=== PATIENT | male | born 1955 | race Caucasian/White ===

== ENCOUNTER 2018-01-17 12:46 | Observation (INO) ==
[2018-01-17] MEDS ORDERED: Tetanus/Diphtheria Toxoid Adult Vaccine Inj 0.5 ML Vial IM ONE (13:09)
[2018-01-17] MEDS ORDERED: ceFAZolin 2 GM Premix Inj 2 GM/50 ML PIGGYBACK IV.SIG ONE (13:09)
--- NOTE | 2018-01-17 13:44 | XR ---
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 CLINICAL DATA: This is the patient's initial encounter. Patient reports that signs and symptoms have been present for 1 day and indicates a pain score of 10/10. MEDICAL/SURGICAL HISTORY: None. None. COMPARISON: No prior exams available for comparison. FINDINGS: Views of the right ankle are obtained. Extensive soft tissue injury in the region of the Achilles ten don. 2 ossified densities the largest measuring 19 mm may be related to calcaneal bone fragments. Ank le mortise is intact CONCLUSION: 1. Extensive soft tissue injury to the posterior ankle/[place] tendon. 2. Ossified density measuring 19 mm may be related to bony fragment from the adjacent calcaneus. Electronically signed by: Casper Rasmussen MD 01/17/2018 1:43 PM EDT
[2018-01-17] MEDS ORDERED: Morphine Inj 4 MG/ML Vial IV.PUSH PRN (14:06)
--- NOTE | 2018-01-17 14:18 | P.HPIM ---
History of Present Illness Primary Care Physician: No Primary Care Physician Chief Complaint: left ankle injury History of Present Illness: patient is a 62 y/o male with no significant past medical history who presented to ER with left ankle injury. he says that this morning while he was working on the lawn the tip of the mower hit his left ankle. he denies any other injuries. the pain was mild at the time of my evaluation and otherwise he denies any other complaints. Review of Systems All other systems reviewed negative except as stated in HPI PMFSH - History History Provided By: Patient - Medical History Medical History: Medical History (Last Reviewed 01/17/18 @ 14:10 by Gary Ratliff MD) Patient denies medical problems - Surgical History Surgical History: Surgical History (Last Reviewed 01/17/18 @ 14:10 by Gary Ratliff MD) No history of previous surgery - Family History Family History: Family History (Last Updated 01/17/18 @ 14:10 by Gary Ratliff MD) Other No pertinent family history - Tobacco History Second Hand Smoke Exposure: No Smoking Status: Never smoker - Alcohol History How Often Do You Have a Drink Containing Alcohol: 2 to 3 times a week - Immunization History Tetanus Immunization: >5 Years Medications and Allergies Active Medications: Active Medications Sodium Chloride (Ns Inj) 1,000 mls @ 100 mls/hr IV.CONT .Q10H ROBERT Cefazolin Sodium 1,000 mg/ (Sodium Chloride) 100 mls @ 200 mls/hr IV.SIG Q8H ROBERT Morphine Sulfate (Morphine Inj) 2 mg IV.PUSH Q4H PRN PRN Reason: pain Ondansetron HCl (Zofran Inj) 4 mg IV.PUSH Q8H PRN PRN Reason: nausea Allergies Allergy/AdvReac Type Severity Reaction Status Date / Time No Known Allergies Allergy Verified 01/17/18 13:13 Home Medications Medication Instructions Recorded Confirmed Type No Known Home Medications 01/17/18 01/17/18 History Exam Vital signs: Vital Signs 01/17/18 13:07 Temperature 98.2 F Pulse Rate 58 L Respiratory Rate 16 Blood Pressure 133/79 Pulse Oximetry 100 Intake & Output 01/16/18 01/17/18 01/17/18 18:59 06:59 18:59 Intake Total 50 / 50 Balance 50 / 50 Weight 85.275 kg Intake: IV 50 / 50 Ancef 2 GM Premix Inj 2 gm In 50 / 50 50 ml @ 100 mls/hr IV.SIG ONCE ONE Rx#:[id number] - Constitutional no acute distress - Routine HEENT Exam Head: Present: atraumatic - Routine Neck Exam Present: supple - Routine Respiratory Exam Present: CTA bilaterally - Routine Cardiovascular Exam Present: RRR - Routine Abdominal Exam Present: soft - Routine Extremities Exam Comments: no pedal edema- left ankle covered with clean dressing. - Routine Neurological Exam Present: alert, oriented X3 Results - Imaging Impressions Ankle X-Ray 01/17/18 13:09 CONCLUSION: 1. Extensive soft tissue injury to the posterior ankle/[place] tendon. 2. Ossified density measuring 19 mm may be related to bony fragment from the adjacent calcaneus. Caprini VTE Risk Assessment Caprini VTE Risk Assessment: No/Low Risk (score <= 1) Caprini Risk Assessment Model: Point Value = 1 Point Value = 2 Point Value = 3 Point Value = 5 Age 41-60 Minor surgery BMI > 25 kg/m2 Swollen legs Varicose veins or History of unexplained or recurrent spontaneous Oral contraceptives or hormone replacement Sepsis (< 1 month) Serious lung disease, including pneumonia (< 1 month) Abnormal pulmonary function Acute myocardial infarction Congestive heart failure (< 1 month) History of inflammatory bowel disease Medical patient at bed rest Age 61-74 Arthroscopic surgery Major open surgery (> 45 min) Laparoscopic surgery (> 45 min) Malignancy Confined to bed (> 72 hours) Immobilizing plaster cast Central venous access Age >= 75 History of VTE Family history of VTE Factor V Leiden Prothrombin [id number] Lupus anticoagulant Anticardiolipin antibodies Elevated serum homocysteine Heparin-induced thrombocytopenia Other congenital or acquired thrombophilia Stroke (< 1 month) Elective arthroplasty Hip, pelvis, or leg fracture Acute spinal cord injury (< 1 month) Prophylaxis Regimen: Total Risk Factor Score Risk Level Prophylaxis Regimen 0-1 Low Early ambulation 2 Moderate Order ONE of the following: *Sequential Compression Device (SCD) *Heparin 5000 units SQ BID 3-4 Higher Order ONE of the following medications: *Heparin 5000 units SQ TID *Enoxaparin/Lovenox 40 mg SQ daily (WT < 150 kg, CrCl > 30 mL/min) *Enoxaparin/Lovenox 30 mg SQ daily (WT < 150 kg, CrCl > 10-29 mL/min) *Enoxaparin/Lovenox 30 mg SQ BID (WT < 150 kg, CrCl > 30 mL/min) AND/OR *Sequential Compression Device (SCD) 5 or more Highest Order ONE of the following medications: *Heparin 5000 units SQ TID (Preferred with Epidurals) *Enoxaparin/Lovenox 40 mg SQ daily (WT < 150 kg, CrCl > 30 mL/min) *Enoxaparin/Lovenox 30 mg SQ daily (WT < 150 kg, CrCl > 10-29 mL/min) *Enoxaparin/Lovenox 30 mg SQ BID (WT < 150 kg, CrCl > 30 mL/min) AND *Sequential Compression Device (SCD) Assessment and Plan - Plan A/P - left ankle injury XR of the left ankle with extensive soft tissue injury to the posterior ankle /Jaime tendon and ossified density measuring 19 mm may be related to bony fragment from the adjacent calcaneus. keep NPO- consult Podiatry- MRI of the left ankle pending. received Tetanus vaccination in ER- will continue with IV antibiotic for now- pending podiatry evaluation. Discussed Condition With: ER physician and the patient. Discharge Planning: pending podiatry evaluation.
--- NOTE | 2018-01-17 14:28 | ED ---
HPI General Chief Complaint: Extremity Injury, Lower Stated Complaint: left ankle injury Time Seen by Provider: 01/17/18 13:08 Source: patient Mode of arrival: ambulatory Limitations: no limitations History of Present Illness HPI Narrative: Patient is 82 years old and arrives to the left heel injury. He reports a tractor lawnmower blade struck the left ankle about an hour prior to ER arrival. Bleeding resolved with application of a dresser. He reports flexion at the ankle is painful and he feels as though something might snap if he presses too hard. No other injury reported. Patient does not recall last tetanus. Type of Injury: Reports laceration Place: Reports home Severity: severe Relieving factors: immobilization Exacerbating factors: movement Related Data Home Medications Medication Instructions Recorded Confirmed No Known Home Medications 01/17/18 01/17/18 Allergies Allergy/AdvReac Type Severity Reaction Status Date / Time No Known Allergies Allergy Verified 01/17/18 13:13 Review of Systems ROS: all other systems reviewed are negative [facility] Family History Family History Other No pertinent family history Social History Social History Second Hand Smoke Exposure: No Smoking Status: Never smoker How Often Do You Have a Drink Containing Alcohol: 2 to 3 times a week Immunization History Tetanus Immunization: >5 Years Exam Narrative Exam Narrative: GENERAL: She is a 2-year-old male well-nourished well-developed moderate distress SKIN: Focused skin assessment warm/dry. HEAD: Atraumatic. Normocephalic. EYES: Pupils equal and round. No scleral icterus. No injection or drainage. ENT: No nasal bleeding or discharge. Mucous membranes pink and moist. NECK: Trachea midline. No JVD. CARDIOVASCULAR: Regular rate and rhythm. No murmur appreciated. RESPIRATORY: No accessory muscle use. Clear to auscultation. Breath sounds equal bilaterally. GASTROINTESTINAL: Abdomen soft, non-tender, nondistended. Hepatic and splenic margins not palpable. MUSCULOSKELETAL: Left ankle shows a large avulsion laceration just above the calcaneus with some visualization of the calcaneus with what appears to be a severance of the Achilles tendon. There is some preserved flexion extension of the left ankle however it is limited by pain. 2+ dorsalis pedis and posterior tibialis noted. NEUROLOGICAL: Awake and alert. No obvious cranial nerve deficits. Motor grossly within normal limits. Normal speech. PSYCHIATRIC: Appropriate mood and affect; insight and judgment normal. Course Initial Documented Vital Signs Temperature 98.2 F 01/17/18 13:07 Pulse Rate 58 L 01/17/18 13:07 Respiratory Rate 16 01/17/18 13:07 Blood Pressure 133/79 01/17/18 13:07 Pulse Oximetry 100 01/17/18 13:07 Last Documented Vital Signs Temperature 98.2 F 01/17/18 13:07 Pulse Rate 58 L 01/17/18 13:07 Respiratory Rate 16 01/17/18 13:07 Blood Pressure 133/79 01/17/18 13:07 Pulse Oximetry 100 01/17/18 13:07 Critical Care Time Critical Care Time: Yes Total Critical Care Time: 30 Attestation: Aggregate critical care time was 30 minutes. Time to perform other separately billable procedures was not included in the critical care time. My time did not include minutes spent treating any other patients simultaneously or on activities that did not directly contribute to the patient's treatment. The services I provided to this patient were to treat and/or prevent clinically significant deterioration that could result in: tendon injury, permanent disability I provided critical care services requiring my management, as noted below: Chart data review, documentation time, medication orders and management, vital sign assessments/reviewing monitor data, ordering and reviewing lab tests, ordering and interpreting/reviewing x-rays and diagnostic studies, care of the patient and discussion of the patient with the admitting physicians. Medical Decision Making MDM Narrative Medical decision making narrative: Achilles tendon rupture is of concern. Wound irrigated and dressed with wet-to-dry sterile dressings with iodine. Wound wrapped. Discussed with Dr. Stockton for podiatry. MR studies ordered at her request. Discussed with Dr. beata duran for hospitalist service. Medical Screen Exam Complete: Yes Emergency Medical Condition: Yes Differential Diagnosis Differential Diagnosis: Achilles tendon lack, fracture, dislocation, open fracture Imaging Data Attestation: I personally reviewed and interpreted this imaging study as follows : Radiologist's impression: Ankle X-Ray 01/17/18 13:09 CONCLUSION: 1. Extensive soft tissue injury to the posterior ankle/Jaime tendon. 2. Ossified density measuring 19 mm may be related to bony fragment from the adjacent calcaneus. Discharge Plan Discharge Disposition Patient Disposition: 30 Still Patient Physicians Team ED Provider: Moises Jules Primary Care Provider: Primary Care Physici,No Other Providers: Maggie Stockton Rxs /Orders / Referrals /Forms Prescriptions: No Action No Known Home Medications RF: 0 Discharge Instructions Patient Printed Instructions: Incision and Drainage (DC) Status ED Status: With Doctor
[2018-01-17 15:38] LABS: Baso # (Auto) 0.1 th/mm3 (0.0-0.2); Baso % (Auto) 0.5 % (0.0-2.0); Eos # (Auto) 0.1 th/mm3 (0.0-0.4); Eos % (Auto) 1.4 % (0.0-4.0); Hematocrit 46.7 % (39.0-51.0); Hemoglobin 15.9 gm/dL (13.0-17.0); Lymph % (Auto) 9.2 % (9.0-44.0); Mean Corpuscular HGB Conc 34.2 % (32.0-36.0); Mean Corpuscular Hemoglobin 33.1 pg (27.0-34.0); Mean Platelet Volume 8.6 fL (7.0-11.0); Mono # (Auto) 0.5 th/mm3 (0.0-0.9); Mono % (Auto) 5.2 % (0.0-8.0); Neut # (Auto) 8.8 th/mm3 (1.8-7.7); Neut % (Auto) 83.7 % (16.0-70.0); Platelet Count 222 th/mm3 (150-450); Red Blood Count 4.81 mil/mm3 (4.50-5.90); Red Cell Distribution Width 13.8 % (11.6-17.2); White Blood Count 10.5 th/mm3 (4.0-11.0)
--- NOTE | 2018-01-17 15:53 | MR ---
EXAM DATE: 01/17/2018 2:52 PM EDT AGE/SEX: 62 years / Male INDICATIONS: . Ran posterior left foot over with a lawnmower blade. CLINICAL DATA: This is the patient's initial encounter. Patient reports that signs and symptoms have been present for 1 day and indicates a pain score of 6/10. MEDICAL/SURGICAL HISTORY: None. None. COMPARISON: [facility], ANKLE COMPLETE LEFT MIN 3V, 01/17/2018. . TECHNIQUE: Multiplanar, multisequence MRI examination was performed without contrast. FINDINGS: Bones: There is a large bony fragment measuring 1.9 cm on the plain film that is superiorly migrated from the top the calcaneus by at least 1.8 cm. There is a large defect of the Achilles tendon commissioning specialist ior to the bone fragment of at least 3.4 cm. There are some bony edema along the remaining edge of th e calcaneus. On the axial images the bone fragment appears to primarily involve the lateral attachmen t of the Achilles. Small plantar spur Joint Spaces: No joint effusion or loose bodies are seen. The articular cartilage is intact. Tendons: The posteromedial tendons (tibialis posterior, flexor digitorum and flexor hallucis longus) are intact. The peroneal tendons are intact. The anterior tendons (tibialis anterior, extensor jeromy lucis longus and extensor digitorum) are intact. The Ligaments: The lateral and medial ligament complexes are intact. Other: The plantar aponeurosis is grossly unremarkable. The structures in the tarsal tunnel are int act. Soft Tissues: Obvious soft tissue defect above the calcaneus CONCLUSION: 1. There has been a fracture at the top the calcaneus and retraction of the Achilles tendon approxim ately 3.4 cm. Bone fragment with the Achilles is better seen on the plain film. The bone fragment mor e involves lateral insertion of the Achilles. Electronically signed by: Russel Mcwilliams MD 01/17/2018 3:52 PM EDT
[2018-01-17 15:55] LABS: Calcium 8.9 mg/dL (8.5-10.1); Carbon Dioxide 28.1 meq/L (21.0-32.0); Potassium 4.4 meq/L (3.5-5.1)
[2018-01-17] MEDS: Sod Chloride 0.9% Inj 1,000 ML IV.CONT SCH ×2 (16:11→20:42)
--- NOTE | 2018-01-17 17:43 | MB ---
cc: Maggie Stockton DPM DATE: 01/17/2018 CHIEF COMPLAINT: Left leg laceration. HISTORY OF PRESENT ILLNESS: Mr. Durán is a 62-year-old male patient who states that at 10:30 this morning, he was working on the lawn and somehow managed to lacerate the posterior aspect of his ankle with a lawnmower blade. He states he was not mowing the lawn at the time of the injury, but the blade is used and was dirty. The patient states that he is having some discomfort, but the pain is tolerable. PAST MEDICAL HISTORY: The patient denies. PAST SURGICAL HISTORY: The patient denies. FAMILY HISTORY: Noncontributory. SOCIAL HISTORY: The patient denies any tobacco abuse. Drinks alcohol socially. Lives at home with family. VITAL SIGNS: Temperature is 97.7, pulse is 60, respiratory rate 18, blood pressure 120/71, O2 is 98% on room air. LABORATORY DATA: White count is 10.5, hemoglobin 15.9, hematocrit 46.7, platelets 222,000. Sodium 144, potassium 4.4, chloride 107, carbon dioxide 28.1, BUN 16, creatinine 1.31, glucose 92. DIAGNOSTIC DATA: Ankle x-ray shows a 1.9 cm bone piece which appears to be fragmented off of the posterior aspect of the calcaneus, and extensive soft tissue damage to the posterior aspect of the Achilles tendon. MRI shows the Achilles tendon is lacerated and retracted approximately 3.4 cm with a small portion of the posterior lateral calcaneus attached. There are no large foreign body fragments. PHYSICAL EXAMINATION: The patient physical exam was slightly limited due to a fresh and bulky dressing. He does have palpable pulses though and capillary refill time is less than 3 seconds. He is able to move the digits slightly. Gross sensation is intact. No visible edema. ASSESSMENT AND PLAN: 1. Left ankle calcaneal fracture and Achilles laceration. Plan for surgical washout and debridement with possible closure this evening as soon as the operating room has availability. - N.p.o. The patient states he has not eaten since around 9 a.m. this morning. - The patient will be nonweightbearing postoperatively. - The patient will likely need a second surgery in 48-72 hours to reapproximate the Achilles tendon. ELLA Shaikh/tova , 05:13 PM , 05:22 PM MARIZOL
[2018-01-17] MEDS ORDERED: Phenylephrine/NS 1000 MCG/10ML Syringe IV.PUSH ONE (18:01)
[2018-01-17] MEDS ORDERED: Lidocaine PF 1% Inj 5 ML Syringe OTHER ONE (18:01)
[2018-01-17] MEDS ORDERED: Sugammadex Inj 200 MG/2 ML Vial IV.PUSH ONE (18:22)
[2018-01-17] MEDS ORDERED: fentaNYL Citrate Inj 100 MCG/2 ML Ampul ONE ×2 (19:01→19:02)
--- NOTE | 2018-01-17 20:53 | MP ---
cc: Maggie Stockton DPM DATE OF OPERATION: 01/17/2018 SURGEON: Maggie Stockton MD ELECTRICIAN RESEARCH: first devika Mancini. PREOPERATIVE DIAGNOSES: 1. Left open calcaneal fracture. 2. Left Achilles tendon tear. 3. Left complex laceration. POSTOPERATIVE DIAGNOSES: 1. Left open calcaneal fracture. 2. Left Achilles tendon tear. 3. Left complex laceration. PROCEDURE PERFORMED: 1. Left open calcaneal bone debridement. 2. Left leg wound debridement/incision and drainage. 3. Closure of complicated wound. 4. Wound VAC application. PATHOLOGY SENT: A fragment of calcaneal bone. MATERIALS USED: Include absorbable beads infused with vancomycin, 3-0 Prolene, and a KCI wound VAC. INJECTABLES: None. COMPLICATIONS: None. ESTIMATED BLOOD LOSS: 20 mL. INDICATIONS: Mr. Durán is a 62-year-old male patient who sustained an injury to the left posterior ankle on a farm equipment. Around 10:30 this morning, he sustained a laceration of the Achilles tendon as well as an open fracture of the calcaneus and a complex wound. The decision was made to do a two-part procedure with the first part being a cleansing and reapproximating the skin and tendon and the second part being a permanent repair of the tendon. The consent was explained in detail and signed. The patient had all questions answered and all concerns addressed. DESCRIPTION OF PROCEDURE: Under mild sedation, the patient was brought to the operating room, placed on the operating table in the prone position following intubation. The foot was then scrubbed, prepped, and draped in the usual aseptic manner. Further examination of the leg showed a large semicircular laceration to the posterior aspect of the heel with an exposed portion of the fractured calcaneus and the open Achilles tendon. There was some debris of note in the wound. A 3 liters of sterile saline was used to irrigate the wound and cleaned it of any foreign bodies. The proximal fragment of the calcaneal bone was sharply debrided from the Achilles tendon and sent to pathology for further evaluation and measured just under 2 cm. The Achilles tendon appeared to be fully intact other than the area from which it had been severed. The skin had been severely retracted and rotated, but after some debridement and freeing it from the Achilles tendon, it was able to be derotated and flapped distally in order to reapproximate it. Approximately 75% of the laceration was able to be very well approximated. The other 25% was loosely reapproximated, but cannot be fully closed. Prior to the 25% reapproximation, the absorbable antibiotic beads were placed into the wound site. No tourniquet was used. All skin flaps appear well perfused and viable at this time. Adaptic was placed over the suture sites. VAC tape was placed on the healthy skin and a wound VAC was placed at 100 mmHg over the incision site. He was then placed in a posterior splint in a plantarflexed position. The patient tolerated the procedure and the anesthesia well. He will recover in the PACU for a period of time before being discharged back to his room with written and oral postoperative instructions. ELLA Shaikh/sv , 07:31 PM , 07:39 PM
[2018-01-18] MEDS: Gentamicin/NS 80 mg Premix 100 ML IV.SIG SCH ×3 (02:19→17:42)
[2018-01-18] MEDS: Sod Chloride 0.9% Inj 1,000 ML IV.CONT SCH ×5 (02:27→20:47)
--- NOTE | 2018-01-18 09:05 | P.PN ---
Subjective Interval history: This is a pleasant 62 y/o Male who came to ER with left Ankle injury denies any other injuries. covered with antibiotics, Tetanus vaccine, with diagnosis of left open calcaneal fracture, left Achilles tendon tear, left complex laceration, status post Left open calcaneal bone debridement, Left leg wound debridement/incision and drainage, Closure of complicated wound, Wound VAC application, a fragment of calcaneal bone for pathology sent, Seen today by Doctor Elle Palafox recommended for OR tomorrow for Achilles tendon rupture repair, he understands he will need to be nonweightbearing for a period of 8-12 weeks. Physical Exam Vital signs: Vital Signs 01/17/18 13:07 01/17/18 15:50 01/17/18 19:30 Temperature 98.2 F 97.7 F 97.6 F Pulse Rate 58 L 60 96 H Respiratory Rate 16 18 14 Blood Pressure 133/79 120/71 142/73 H Pulse Oximetry 100 98 96 01/17/18 19:45 01/17/18 20:00 01/17/18 20:15 Temperature 97.7 F Pulse Rate 78 79 67 Respiratory Rate 14 18 16 Blood Pressure 128/72 127/68 124/74 Pulse Oximetry 99 97 97 01/17/18 20:30 01/17/18 20:45 01/17/18 21:00 Temperature 97.7 F Pulse Rate 82 79 80 Respiratory Rate 20 20 16 Blood Pressure 135/77 128/72 116/76 Pulse Oximetry 95 99 99 01/18/18 00:00 01/18/18 07:51 Temperature 98.0 F 98.4 F Pulse Rate 75 78 Respiratory Rate 18 16 Blood Pressure 101/55 L 104/55 L Pulse Oximetry 94 L 94 L Intake & Output 01/17/18 01/18/18 01/18/18 18:59 06:59 18:59 Intake Total 50 / 50 3100 / 3100 100 / 100 Output Total 40 / 40 Balance 50 / 50 3060 / 3060 100 / 100 Weight 85.275 kg 82.1 kg Intake: IV 50 / 50 2000 / 2000 100 / 100 NS Inj 1,000 ML @ 100 mls/hr IV 1800 / 1800 .CONT .Q10H ROBERT Rx#:[id number] Gentamicin/NS 80 mg Premix 100 100 / 100 ML @ 200 mls/hr IV.SIG Q8H ROBERT Rx#:[id number] Ancef 2 GM Premix Inj 2 gm In 50 / 50 50 ml @ 100 mls/hr IV.SIG ONCE ONE Rx#:[id number] Ancef Inj 1,000 MG In NS Inj 100 / 100 100 / 100 100 ML @ 200 mls/hr IV.SIG Q8H [facility] Rx#:[id number] Anesthesia Amount 1100 / 1100 Output: Urine 0 / 0 Estimated Blood Loss 40 / 40 Other: Mode Setting Right Ankle Continuous Weight On Admission 83.915 kg Narrative: GENERAL: This is a well-nourished, well-developed patient, in no apparent distress. CARDIOVASCULAR: Regular rate and rhythm without murmurs, gallops, or rubs. RESPIRATORY: Clear to auscultation. Breath sounds equal bilaterally. No wheezes , rales, or rhonchi. GASTROINTESTINAL: Abdomen soft, non-tender, nondistended. Normal active bowel sounds MUSCULOSKELETAL: left leg dressed. vacuum in place. NEURO: Alert & Oriented x4 to person, place, time, situation. Moves all ext x4 Results - Labs CBC & Chem 7: 01/17/18 13:45 01/17/18 13:45 Laboratory Results - last 24 hr 01/17/18 01/17/18 13:45 13:45 WBC 10.5 RBC 4.81 Hgb 15.9 Hct 46.7 MCV 97.0 MCH 33.1 MCHC 34.2 RDW 13.8 Plt Count 222 MPV 8.6 Neut % (Auto) 83.7 H Lymph % (Auto) 9.2 Coffey % (Auto) 5.2 Eos % (Auto) 1.4 Baso % (Auto) 0.5 Neut # (Auto) 8.8 H Lymph # (Auto) 1.0 Coffey # (Auto) 0.5 Eos # (Auto) 0.1 Baso # (Auto) 0.1 WBC Differential . Differential Comment Auto diff final Sodium 144 Potassium 4.4 Chloride 107 Carbon Dioxide 28.1 Anion Gap 9 BUN 16 Creatinine 1.31 H Estimated GFR 55 L Random Glucose 92 Calcium 8.9 - Imaging Impressions Ankle X-Ray 01/17/18 13:09 CONCLUSION: 1. Extensive soft tissue injury to the posterior ankle/Jaime tendon. 2. Ossified density measuring 19 mm may be related to bony fragment from the adjacent calcaneus. Ankle MRI 01/17/18 13:32 CONCLUSION: 1. There has been a fracture at the top the calcaneus and retraction of the Achilles tendon approximately 3.4 cm. Bone fragment with the Achilles is better seen on the plain film. The bone fragment more involves lateral insertion of the Achilles. - Procedures DATE OF OPERATION: 01/17/2018 SURGEON: Maggie Stockton MD SUPERINTENDENT SANITATION: first devika Mancini. PREOPERATIVE DIAGNOSES: 1. Left open calcaneal fracture. 2. Left Achilles tendon tear. 3. Left complex laceration. POSTOPERATIVE DIAGNOSES: 1. Left open calcaneal fracture. 2. Left Achilles tendon tear. 3. Left complex laceration. PROCEDURE PERFORMED: 1. Left open calcaneal bone debridement. 2. Left leg wound debridement/incision and drainage. 3. Closure of complicated wound. 4. Wound VAC application. PATHOLOGY SENT: A fragment of calcaneal bone. Assessment and Plan - Plan - left ankle injury/left open calcaneal fracture, left Achilles tendon tear, left complex laceration, status post Left open calcaneal bone debridement, Left leg wound debridement/incision and drainage, Closure of complicated wound, Wound VAC application, a fragment of calcaneal bone for pathology sent, Seen today by Doctor Elle Palafox recommended for OR tomorrow for Achilles tendon rupture repair , he understands he will need to be nonweightbearing for a period of 8-12 weeks. DVT prophylaxis as per Podiatry specialist. Code Status: Full code. Discussed Condition With: patient and nurse. Discharge Planning: Once cleared by Podiatry specialist.
[2018-01-18] MEDS: Acetaminophen 325 MG Tablet PO PRN ×3 (10:17→20:51)
--- NOTE | 2018-01-18 17:21 | P.PNPOD ---
Subjective Interval history: Patient seen bedside resting comfortably. Wound VAC functioning AT 125 mm per mercury. Physical Exam Vital signs: Vital Signs 01/17/18 19:30 01/17/18 19:45 01/17/18 20:00 Temperature 97.6 F 97.7 F Pulse Rate 96 H 78 79 Respiratory Rate 14 14 18 Blood Pressure 142/73 H 128/72 127/68 Pulse Oximetry 96 99 97 01/17/18 20:15 01/17/18 20:30 01/17/18 20:45 Temperature Pulse Rate 67 82 79 Respiratory Rate 16 20 20 Blood Pressure 124/74 135/77 128/72 Pulse Oximetry 97 95 99 01/17/18 21:00 01/18/18 00:00 01/18/18 07:51 Temperature 97.7 F 98.0 F 98.4 F Pulse Rate 80 75 78 Respiratory Rate 16 18 16 Blood Pressure 116/76 101/55 L 104/55 L Pulse Oximetry 99 94 L 94 L 01/18/18 11:59 01/18/18 16:00 Temperature 98.4 F 98.2 F Pulse Rate 68 81 Respiratory Rate 16 16 Blood Pressure 111/55 L 129/60 Pulse Oximetry 95 96 Intake & Output 01/17/18 01/18/18 01/18/18 18:59 06:59 18:59 Intake Total 50 / 50 3100 / 3100 1153 / 1153 Output Total 40 / 40 Balance 50 / 50 3060 / 3060 1153 / 1153 Weight 85.275 kg 82.1 kg Intake: IV 50 / 50 2000 / 2000 1153 / 1153 NS Inj 1,000 ML @ 100 mls/hr IV 1800 / 1800 853 / 853 .CONT .Q10H [facility] Rx#:[id number] Gentamicin/NS 80 mg Premix 100 100 / 100 100 / 100 ML @ 200 mls/hr IV.SIG Q8H [facility] Rx#:[id number] Ancef 2 GM Premix Inj 2 gm In 50 / 50 50 ml @ 100 mls/hr IV.SIG ONCE ONE Rx#:[id number] Ancef Inj 1,000 MG In NS Inj 100 / 100 200 / 200 100 ML @ 200 mls/hr IV.SIG Q8H [facility] Rx#:[id number] Anesthesia Amount 1100 / 1100 Output: Urine 0 / 0 Estimated Blood Loss 40 / 40 Other: Mode Setting Right Ankle Continuous Weight On Admission 83.915 kg Narrative: Wound VAC functioning at 125 mm per mercury. Capillary refill time intact to digits x5 left foot. Active passive dorsiflexion digits x5 left lower extremity. Medications and Allergies Active Medications: Active Medications Acetaminophen (Tylenol) 650 mg PO Q4H PRN PRN Reason: fever, pain 1-5 Last Admin: 01/18/18 16:29 Dose: 650 mg Sodium Chloride (Ns Inj) 1,000 mls @ 100 mls/hr IV.CONT .Q10H [facility] Last Admin: 01/18/18 16:31 Dose: 100 mls/hr Cefazolin Sodium 1,000 mg/ (Sodium Chloride) 100 mls @ 200 mls/hr IV.SIG Q8H [facility] Last Infusion: 01/18/18 13:09 Dose: Infused Gentamicin Sulfate/Sodium Chloride (Gentamicin/Ns 80 Mg Premix) 100 mls @ 200 mls/hr IV.SIG Q8H [facility] Last Infusion: 01/18/18 10:15 Dose: Infused Miscellaneous Information ([facility] [place] [facility] [place] 1 each OTHER UNSCH PRN PRN Reason: SEE LABEL COMMENTS Stop: 01/18/18 22:45 Morphine Sulfate (Morphine Inj) 2 mg IV.PUSH Q4H PRN PRN Reason: PAIN 6-10;IF UNABLE TO TAKE PO Ondansetron HCl (Zofran Inj) 4 mg IV.PUSH Q8H PRN PRN Reason: nausea Allergies Allergy/AdvReac Type Severity Reaction Status Date / Time No Known Allergies Allergy Verified 01/17/18 13:13 Home Medications Medication Instructions Recorded Confirmed Type No Known Home Medications 01/17/18 01/17/18 History Results - Labs CBC & Chem 7: 01/17/18 13:45 01/17/18 13:45 - Procedures DATE OF OPERATION: 01/17/2018 SURGEON: Maggie Stockton MD PHARMACY INTAKE TECHNICIAN: first devika Mancini. PREOPERATIVE DIAGNOSES: 1. Left open calcaneal fracture. 2. Left Achilles tendon tear. 3. Left complex laceration. POSTOPERATIVE DIAGNOSES: 1. Left open calcaneal fracture. 2. Left Achilles tendon tear. 3. Left complex laceration. PROCEDURE PERFORMED: 1. Left open calcaneal bone debridement. 2. Left leg wound debridement/incision and drainage. 3. Closure of complicated wound. 4. Wound VAC application. PATHOLOGY SENT: A fragment of calcaneal bone. Assessment and Plan - Plan 62-year-old male with Achilles tendon rupture and laceration, day 2 status post debridement irrigation with antibiotic bead placement and wound VAC placement To the OR tomorrow for Achilles tendon rupture repair Please obtain consent N.p.o. after midnight with clear liquids okay until 7 AM, discussed with nurse Patient understands all risks benefits alternatives and complications associated with procedure, he understands he will need to be nonweightbearing for a period of 8-12 weeks
[2018-01-18] MEDS ORDERED: Chlorhexidine Gluconate 2% 1 Pack (2 Cloths) TOPICAL ONE (22:08)
[2018-01-18] MEDS ORDERED: Metoprolol Tartrate 25 MG Tablet PO ONE (22:08)
[2018-01-18] MEDS ORDERED: Sodium Chlor 0.9% Inj 500 ML IV.SIG SCH (23:00)
[2018-01-19] MEDS: Gentamicin/NS 80 mg Premix 100 ML IV.SIG SCH ×3 (01:33→18:16)
[2018-01-19] MEDS: Sod Chloride 0.9% Inj 1,000 ML IV.CONT SCH ×3 (02:43→21:54)
[2018-01-19] MEDS: Acetaminophen 325 MG Tablet PO PRN ×3 (04:13→21:51)
[2018-01-19 07:13] LABS: Carbon Dioxide 25.2 meq/L (21.0-32.0); Potassium 3.9 meq/L (3.5-5.1)
--- NOTE | 2018-01-19 11:55 | P.PN ---
Subjective Interval history: This is a pleasant 62 y/o Male who came to ER with left Ankle injury denies any other injuries. covered with antibiotics, Tetanus vaccine, with diagnosis of left open calcaneal fracture, left Achilles tendon tear, left complex laceration, status post Left open calcaneal bone debridement, Left leg wound debridement/incision and drainage, Closure of complicated wound, Wound VAC application, a fragment of calcaneal bone for pathology sent, Seen today by Doctor Elle Palafox recommended for OR tomorrow for Achilles tendon rupture repair, he understands he will need to be nonweightbearing for a period of 8-12 weeks. 01/19: Seen in his bedroom, resting in bed awaiting for Surgery later today at 3 PM by Doctor Javy, no nausea, vomit or diarrhea, patient is NPO for surgery. Physical Exam Vital signs: Vital Signs 01/18/18 11:59 01/18/18 16:00 01/18/18 20:00 Temperature 98.4 F 98.2 F 98.2 F Pulse Rate 68 81 73 Respiratory Rate 16 16 17 Blood Pressure 111/55 L 129/60 109/62 Pulse Oximetry 95 96 96 01/19/18 00:00 01/19/18 08:00 Temperature 99.1 F 98.5 F Pulse Rate 70 60 Respiratory Rate 17 17 Blood Pressure 132/65 123/68 Pulse Oximetry 96 94 L Intake & Output 01/18/18 01/19/18 01/19/18 18:59 06:59 18:59 Intake Total 4253 / 4253 1420 / 1420 Output Total 900 / 900 Balance 3353 / 3353 1420 / 1420 Weight 82.1 kg Intake: IV 1253 / 1253 1300 / 1300 NS Inj 1,000 ML @ 100 mls/hr IV 853 / 853 1000 / 1000 .CONT .Q10H [facility] Rx#:[id number] Gentamicin/NS 80 mg Premix 100 200 / 200 100 / 100 ML @ 200 mls/hr IV.SIG Q8H [facility] Rx#:[id number] Ancef Inj 1,000 MG In NS Inj 200 / 200 200 / 200 100 ML @ 200 mls/hr IV.SIG Q8H [facility] Rx#:[id number] Oral 3000 / 3000 120 / 120 Output: Urine 900 / 900 Other: Post Void Residual 700 Mode Setting Left Ankle Continuous Right Ankle Continuous Date of Last Bowel Movement 01/16/18 # Bowel Movements 0 Narrative: GENERAL: This is a well-nourished, well-developed patient, in no apparent distress. CARDIOVASCULAR: Regular rate and rhythm without murmurs, gallops, or rubs. RESPIRATORY: Clear to auscultation. Breath sounds equal bilaterally. No wheezes , rales, or rhonchi. GASTROINTESTINAL: Abdomen soft, non-tender, nondistended. Normal active bowel sounds MUSCULOSKELETAL: left leg dressed. vacuum in place. NEURO: Alert & Oriented x4 to person, place, time, situation. Moves all ext x4 Results - Labs CBC & Chem 7: 01/17/18 13:45 01/19/18 05:41 Laboratory Results - last 24 hr 01/19/18 05:41 Sodium 140 Potassium 3.9 Chloride 109 H Carbon Dioxide 25.2 Anion Gap 6 BUN 13 Creatinine 1.06 Estimated GFR 71 L Random Glucose 101 Calcium 8.0 L D - Procedures DATE OF OPERATION: 01/17/2018 SURGEON: Maggie Stockton MD BUSHWALKING GUIDE: first devika Mancini. PREOPERATIVE DIAGNOSES: 1. Left open calcaneal fracture. 2. Left Achilles tendon tear. 3. Left complex laceration. POSTOPERATIVE DIAGNOSES: 1. Left open calcaneal fracture. 2. Left Achilles tendon tear. 3. Left complex laceration. PROCEDURE PERFORMED: 1. Left open calcaneal bone debridement. 2. Left leg wound debridement/incision and drainage. 3. Closure of complicated wound. 4. Wound VAC application. PATHOLOGY SENT: A fragment of calcaneal bone. Assessment and Plan - Plan - left ankle injury/left open calcaneal fracture, left Achilles tendon tear, left complex laceration, status post Left open calcaneal bone debridement, Left leg wound debridement/incision and drainage, Closure of complicated wound, Wound VAC application, a fragment of calcaneal bone for pathology sent, Seen today by Doctor Elle Palafox recommended for OR tomorrow for Achilles tendon rupture repair , he understands he will need to be nonweightbearing for a period of 8-12 weeks. Patient awaiting for surgery at 3 PM later today. DVT prophylaxis as per Podiatry specialist. Code Status: Full Code. Discussed Condition With: Patient, His and Nurse Miss Torres. Discharge Planning: Once cleared by Podiatry specialist.
[2018-01-19] MEDS ORDERED: Succinylcholine Inj 100 MG/5 ML Syringe IV.PUSH ONE (15:31)
[2018-01-19] MEDS ORDERED: Ketorolac Inj 30 MG/ML (IVP) Vial IV.PUSH ONE (15:31)
[2018-01-19] MEDS ORDERED: Lidocaine PF 1% Inj 5 ML Syringe INFILTRATN ONE (15:31)
[2018-01-19] MEDS ORDERED: Phenylephrine/NS 1000 MCG/10ML Syringe IV.PUSH ONE (15:31)
[2018-01-19] MEDS ORDERED: Glycopyrrolate Inj 1 MG/5 ML Syringe IV.PUSH ONE (15:31)
[2018-01-19] MEDS ORDERED: Misc Info for Pharmacy OTHER STA (18:09)
[2018-01-19] MEDS ORDERED: Post-op Orders (for Pharmacy) OTHER STA (18:13)
[2018-01-19] MEDS ORDERED: fentaNYL Citrate Inj 100 MCG/2 ML Ampul ONE (18:17)
--- NOTE | 2018-01-19 18:20 | P.PNPOD ---
Subjective Interval history: Delayed entry. Patient seen in preop agrees with planned procedure. Denies any N ,V,F,CH. Physical Exam Vital signs: Vital Signs 01/18/18 20:00 01/19/18 00:00 01/19/18 08:00 Temperature 98.2 F 99.1 F 98.5 F Pulse Rate 73 70 60 Respiratory Rate 17 17 17 Blood Pressure 109/62 132/65 123/68 Pulse Oximetry 96 96 94 L 01/19/18 12:00 Temperature 97.9 F Pulse Rate 67 Respiratory Rate 17 Blood Pressure 134/72 Pulse Oximetry 95 Intake & Output 01/18/18 01/19/18 01/19/18 18:59 06:59 18:59 Intake Total 4253 / 4253 1420 / 1420 1100 / 1100 Output Total 900 / 900 1600 / 1600 Balance 3353 / 3353 1420 / 1420 -500 / -500 Weight 82.1 kg Intake: IV 1253 / 1253 1300 / 1300 1100 / 1100 NS Inj 1,000 ML @ 100 mls/hr IV 853 / 853 1000 / 1000 1000 / 1000 .CONT .Q10H [facility] Rx#:[id number] Gentamicin/NS 80 mg Premix 100 200 / 200 100 / 100 100 / 100 ML @ 200 mls/hr IV.SIG Q8H [facility] Rx#:[id number] Ancef Inj 1,000 MG In NS Inj 200 / 200 200 / 200 100 ML @ 200 mls/hr IV.SIG Q8H [facility] Rx#:[id number] Oral 3000 / 3000 120 / 120 0 / 0 Output: Urine 900 / 900 1600 / 1600 Other: Post Void Residual 700 Mode Setting Left Ankle Continuous Intermittent Right Ankle Continuous # Voids 1 Date of Last Bowel Movement 01/16/18 # Bowel Movements 0 Narrative: Dressing intact with wound vac functioning at 125mmHg. Posterior splint in place. Active passive DF/PF of digits. BORING INSPECTOR under 5 secs to digits left foot. Medications and Allergies Active Medications: Active Medications Acetaminophen (Tylenol) 650 mg PO Q4H PRN PRN Reason: fever, pain 1-5 Last Admin: 01/19/18 08:28 Dose: 650 mg Sodium Chloride (Ns Inj) 1,000 mls @ 100 mls/hr IV.CONT .Q10H [facility] Last Infusion: 01/19/18 12:46 Dose: Infused Cefazolin Sodium 1,000 mg/ (Sodium Chloride) 100 mls @ 200 mls/hr IV.SIG Q8H [facility] Last Admin: 01/19/18 16:48 Dose: Not Given Gentamicin Sulfate/Sodium Chloride (Gentamicin/Ns 80 Mg Premix) 100 mls @ 200 mls/hr IV.SIG Q8H [facility] Last Infusion: 01/19/18 10:58 Dose: Infused Lactated Ringer's (Lr 1000 Ml Inj) 1,000 mls @ 30 mls/hr IV.SIG .Q24H [facility] Stop: 01/19/18 22:14 Last Admin: 01/19/18 12:47 Dose: 30 mls/hr Sodium Chloride (Ns Inj) 500 mls @ 30 mls/hr IV.SIG .Q10H [facility] Miscellaneous Information (Misc Info For Pharmacy/Read Comments) 0 each OTHER STAT STA Stop: 01/19/18 18:10 Morphine Sulfate (Morphine Inj) 2 mg IV.PUSH Q4H PRN PRN Reason: PAIN 6-10;IF UNABLE TO TAKE PO Ondansetron HCl (Zofran Inj) 4 mg IV.PUSH Q8H PRN PRN Reason: nausea Allergies Allergy/AdvReac Type Severity Reaction Status Date / Time No Known Allergies Allergy Verified 01/17/18 13:13 Home Medications Medication Instructions Recorded Confirmed Type No Known Home Medications 01/17/18 01/17/18 History Results - Labs CBC & Chem 7: 01/17/18 13:45 01/19/18 05:41 Laboratory Results - last 24 hr 01/19/18 05:41 Sodium 140 Potassium 3.9 Chloride 109 H Carbon Dioxide 25.2 Anion Gap 6 BUN 13 Creatinine 1.06 Estimated GFR 71 L Random Glucose 101 Calcium 8.0 L D - Procedures DATE OF OPERATION: 01/17/2018 SURGEON: Maggie Stockton MD FINANCIAL SPECIALIST: first devika Mancini. PREOPERATIVE DIAGNOSES: 1. Left open calcaneal fracture. 2. Left Achilles tendon tear. 3. Left complex laceration. POSTOPERATIVE DIAGNOSES: 1. Left open calcaneal fracture. 2. Left Achilles tendon tear. 3. Left complex laceration. PROCEDURE PERFORMED: 1. Left open calcaneal bone debridement. 2. Left leg wound debridement/incision and drainage. 3. Closure of complicated wound. 4. Wound VAC application. PATHOLOGY SENT: A fragment of calcaneal bone. Assessment and Plan - Plan 62-year-old male with Achilles tendon rupture and laceration, day 2 status post debridement irrigation with antibiotic bead placement and wound VAC placement To the OR today for Achilles tendon rupture repair with reattachment to bone Consent obtained and signed Patient understands all risks benefits alternatives and complications associated with procedure, he understands he will need to be nonweightbearing for a period of 8-12 weeks LLE marked Anticipate DC 3-4 days post op Continue IV abx therapy
--- NOTE | 2018-01-19 18:34 | P.PCN ---
Date of procedure: 01/19/18 Pre-op diagnosis: Left achilles avulsion with calcaneal fracture Post-op diagnosis: same
--- NOTE | 2018-01-19 18:51 | XR ---
EXAM DATE: 01/19/2018 12:00 AM EDT AGE/SEX: 62 years / Male INDICATIONS: Post-op left ankle. CLINICAL DATA: This is the patient's subsequent encounter. Patient reports that signs and symptoms h ave been present for 2 days and indicates a pain score of 0/10. MEDICAL/SURGICAL HISTORY: None. None. COMPARISON: C, ANKLE COMPLETE LEFT MIN 3V, 01/17/2018. . FINDINGS: The patient is in a cast. There is an electronic device projecting over the hindfoot on the AP view. There appears to be a drain seen laterally projecting over the posterior aspect of the calcaneus. The re is air in the soft tissues which is a expected postoperative finding. The posterior superior aspec t of the calcaneus appears normally positioned on the current exam. CONCLUSION: Postoperative change as described above at the posterior calcaneus and hindfoot region. Electronically signed by: Hubert Monte MD 01/19/2018 6:49 PM EDT
--- NOTE | 2018-01-19 19:56 | ECG ---
Date Performed: 01/18/2018 Time Performed: 22:11:38 PTAGE: 62 years EKG: Sinus rhythm POSSIBLE RIGHT VENTRICULAR CONDUCTION DELAY BORDERLINE ECG NO PREVIOUS TRACING DOCTOR: Ervin Gray Interpretating Date/Time 01/19/2018 19:55:42
[2018-01-20] MEDS: Acetaminophen 325 MG Tablet PO PRN ×4 (01:34→20:27)
[2018-01-20] MEDS: Gentamicin/NS 80 mg Premix 100 ML IV.SIG SCH ×3 (01:34→17:21)
[2018-01-20] MEDS: Sod Chloride 0.9% Inj 1,000 ML IV.CONT SCH ×3 (05:31→21:45)
--- NOTE | 2018-01-20 13:04 | P.PNPOD ---
Subjective Interval history: Patient seen bedside resting comfortably with present. Patient states his pain level is 0. He is very happy because he is not experiencing any pain at all. Physical Exam Vital signs: Vital Signs 01/19/18 18:04 01/19/18 18:15 01/19/18 18:30 Temperature 98.2 F 98.2 F Pulse Rate 91 H 90 73 Respiratory Rate 10 L Blood Pressure 153/81 H 132/66 128/80 Pulse Oximetry 96 98 95 01/19/18 18:45 01/19/18 18:51 01/19/18 20:00 Temperature 97.6 F Pulse Rate 80 76 Respiratory Rate 20 17 Blood Pressure 138/84 150/85 H Pulse Oximetry 95 95 96 01/20/18 00:00 01/20/18 08:00 01/20/18 12:00 Temperature 98.3 F 98.4 F 98.5 F Pulse Rate 75 76 80 Respiratory Rate 18 17 17 Blood Pressure 112/56 L 111/62 108/58 L Pulse Oximetry 93 L 94 L 96 Intake & Output 01/19/18 01/20/18 01/20/18 18:59 06:59 18:59 Intake Total 1100 / 1100 2218 / 2218 962 / 962 Output Total 1600 / 1600 30 / 30 700 / 700 Balance -500 / -500 2188 / 2188 262 / 262 Weight 82 kg Intake: IV 1100 / 1100 1918 / 1918 482 / 482 NS Inj 1,000 ML @ 100 mls/hr IV 1000 / 1000 618 / 618 382 / 382 .CONT .Q10H [facility] Rx#:[id number] Gentamicin/NS 80 mg Premix 100 100 / 100 100 / 100 100 / 100 ML @ 200 mls/hr IV.SIG Q8H [facility] Rx#:[id number] LR 1000 mL Inj 1,000 ML @ 30 1000 / 1000 mls/hr IV.SIG .Q24H [facility] Rx#: [id number] Ancef Inj 1,000 MG In NS Inj 200 / 200 100 ML @ 200 mls/hr IV.SIG Q8H [facility] Rx#:[id number] Oral 0 / 0 480 / 480 Anesthesia Amount 300 / 300 Output: Urine 1600 / 1600 700 / 700 Estimated Blood Loss 30 / 30 Other: Mode Setting Left Ankle Intermittent # Voids 1 Narrative: Posterior splint to left lower extremity noted clean dry and intact. Marge wound VAC functioning appropriately. Capillary refill time to digits x5 the left foot. Active/passive dorsiflexion plantarflexion to digits x5 left foot. Neurovascular status intact left lower extremity. No calf pain reported or noted. Medications and Allergies Active Medications: Active Medications Acetaminophen (Tylenol) 650 mg PO Q4H PRN PRN Reason: fever, pain 1-5 Last Admin: 01/20/18 05:32 Dose: 650 mg Diphenhydramine HCl (Benadryl) 25 mg PO Q6H PRN PRN Reason: ITCHING Sodium Chloride (Ns Inj) 1,000 mls @ 100 mls/hr IV.CONT .Q10H [facility] Last Admin: 01/20/18 12:40 Dose: 100 mls/hr Cefazolin Sodium 1,000 mg/ (Sodium Chloride) 100 mls @ 200 mls/hr IV.SIG Q8H [facility] Last Admin: 01/20/18 12:36 Dose: 100 mls/hr Gentamicin Sulfate/Sodium Chloride (Gentamicin/Ns 80 Mg Premix) 100 mls @ 200 mls/hr IV.SIG Q8H [facility] Last Infusion: 01/20/18 10:25 Dose: Infused Sodium Chloride (Ns Inj) 500 mls @ 30 mls/hr IV.SIG .Q10H [facility] Miscellaneous Information ([facility] [place] [facility] [place]) 1 each OTHER UNSCH PRN PRN Reason: SEE LABEL COMMENTS Stop: 01/20/18 18:09 Morphine Sulfate (Morphine Inj) 2 mg IV.PUSH Q4H PRN PRN Reason: PAIN 6-10;IF UNABLE TO TAKE PO Ondansetron HCl (Zofran Inj) 4 mg IV.PUSH Q8H PRN PRN Reason: nausea Allergies Allergy/AdvReac Type Severity Reaction Status Date / Time No Known Allergies Allergy Verified 01/17/18 13:13 Home Medications Medication Instructions Recorded Confirmed Type No Known Home Medications 01/17/18 01/17/18 History Results - Labs CBC & Chem 7: 01/17/18 13:45 01/19/18 05:41 - Imaging Impressions Ankle X-Ray 01/19/18 00:00 CONCLUSION: Postoperative change as described above at the posterior calcaneus and hindfoot region. - Procedures DATE OF OPERATION: 01/17/2018 SURGEON: Maggie Stockton MD EXPRESSIVE ART THERAPIST: first devika Mancini. PREOPERATIVE DIAGNOSES: 1. Left open calcaneal fracture. 2. Left Achilles tendon tear. 3. Left complex laceration. POSTOPERATIVE DIAGNOSES: 1. Left open calcaneal fracture. 2. Left Achilles tendon tear. 3. Left complex laceration. PROCEDURE PERFORMED: 1. Left open calcaneal bone debridement. 2. Left leg wound debridement/incision and drainage. 3. Closure of complicated wound. 4. Wound VAC application. PATHOLOGY SENT: A fragment of calcaneal bone. Assessment and Plan - Plan 62-year-old male with Achilles tendon rupture and laceration, day 2 status post debridement irrigation with antibiotic bead placement and wound VAC placement One day status post Achilles tendon reattachment to calcaneus with graft placement and laceration repair Will change dressing tomorrow and evaluate wound Nonweightbearing left foot Continue open fracture antibiotic protocol for left lower extremity Physical therapy to evaluate and treat Patient will need anticoagulants as well as oral antibiotic time 10 days prior to discharge Potential discharge tomorrow or Monday from podiatry standpoint after evaluation of wound
--- NOTE | 2018-01-20 16:52 | P.PN ---
Subjective Interval history: Follow up for Achilles tendon rupture/laceration s/p I&D. Patient is currently doing well. No chest pain, shortness of breath, fever or chills. He has a slight subconjunctival hemorrhage on the right corner of his right eye. Denies any vision changes. Denies any eye pain. Physical Exam Vital signs: Vital Signs 01/19/18 18:04 01/19/18 18:15 01/19/18 18:30 Temperature 98.2 F 98.2 F Pulse Rate 91 H 90 73 Respiratory Rate 10 L Blood Pressure 153/81 H 132/66 128/80 Pulse Oximetry 96 98 95 01/19/18 18:45 01/19/18 18:51 01/19/18 20:00 Temperature 97.6 F Pulse Rate 80 76 Respiratory Rate 20 17 Blood Pressure 138/84 150/85 H Pulse Oximetry 95 95 96 01/20/18 00:00 01/20/18 08:00 01/20/18 12:00 Temperature 98.3 F 98.4 F 98.5 F Pulse Rate 75 76 80 Respiratory Rate 18 17 17 Blood Pressure 112/56 L 111/62 108/58 L Pulse Oximetry 93 L 94 L 96 01/20/18 16:00 Temperature 97.8 F Pulse Rate 78 Respiratory Rate 19 Blood Pressure 117/58 L Pulse Oximetry 96 Intake & Output 01/19/18 01/20/18 01/20/18 18:59 06:59 18:59 Intake Total 1100 / 1100 2218 / 2218 1062 / 1062 Output Total 1600 / 1600 30 / 30 700 / 700 Balance -500 / -500 2188 / 2188 362 / 362 Weight 82 kg Intake: IV 1100 / 1100 1918 / 1918 582 / 582 NS Inj 1,000 ML @ 100 mls/hr IV 1000 / 1000 618 / 618 382 / 382 .CONT .Q10H [facility] Rx#:[id number] Gentamicin/NS 80 mg Premix 100 100 / 100 100 / 100 100 / 100 ML @ 200 mls/hr IV.SIG Q8H [facility] Rx#:[id number] LR 1000 mL Inj 1,000 ML @ 30 1000 / 1000 mls/hr IV.SIG .Q24H [facility] Rx#: [id number] Ancef Inj 1,000 MG In NS Inj 200 / 200 100 / 100 100 ML @ 200 mls/hr IV.SIG Q8H [facility] Rx#:[id number] Oral 0 / 0 480 / 480 Anesthesia Amount 300 / 300 Output: Urine 1600 / 1600 700 / 700 Estimated Blood Loss 30 / 30 Other: Mode Setting Left Ankle Intermittent # Voids 1 Narrative: GENERAL: This is a well-nourished, well-developed patient, in no apparent distress. CARDIOVASCULAR: Regular rate and rhythm without murmurs, gallops, or rubs. RESPIRATORY: Clear to auscultation. Breath sounds equal bilaterally. No wheezes , rales, or rhonchi. GASTROINTESTINAL: Abdomen soft, non-tender, nondistended. Normal active bowel sounds MUSCULOSKELETAL: left leg dressed. vacuum in place. NEURO: Alert & Oriented x4 to person, place, time, situation. Moves all ext x4 Results - Labs CBC & Chem 7: 01/17/18 13:45 01/19/18 05:41 - Imaging Impressions Ankle X-Ray 01/19/18 00:00 CONCLUSION: Postoperative change as described above at the posterior calcaneus and hindfoot region. - Procedures DATE OF OPERATION: 01/17/2018 SURGEON: Maggie Stockton MD ALLERGIST: first devika Mancini. PREOPERATIVE DIAGNOSES: 1. Left open calcaneal fracture. 2. Left Achilles tendon tear. 3. Left complex laceration. POSTOPERATIVE DIAGNOSES: 1. Left open calcaneal fracture. 2. Left Achilles tendon tear. 3. Left complex laceration. PROCEDURE PERFORMED: 1. Left open calcaneal bone debridement. 2. Left leg wound debridement/incision and drainage. 3. Closure of complicated wound. 4. Wound VAC application. PATHOLOGY SENT: A fragment of calcaneal bone. Assessment and Plan - Plan Mr. Durán is a patient is a 62 y/o male with no significant past medical history who presented to ER with left ankle injury. Left sided Achilles tendon rupture and laceration - s/p I&D with abx bead placement and wound vac. - Currently on post-op abx. - Morphine for pain. subconjunctival hemorrhage - Continue to monitor. No vision changes. Full code. Probable discharge in the next 24-48 hours.
[2018-01-21] MEDS: Gentamicin/NS 80 mg Premix 100 ML IV.SIG SCH ×3 (01:33→18:36)
[2018-01-21] MEDS: Acetaminophen 325 MG Tablet PO PRN ×4 (05:36→20:48)
[2018-01-21] MEDS: Sod Chloride 0.9% Inj 1,000 ML IV.CONT SCH ×2 (09:49→19:50)
--- NOTE | 2018-01-21 12:38 | P.PNPOD ---
Subjective Interval history: Patient seen bedside. Denies any nausea vomiting fevers or chills. Denies any calf pain. Relates pain is well controlled. Physical Exam Vital signs: Vital Signs 01/20/18 15:45 01/20/18 16:00 01/20/18 20:12 Temperature 97.8 F 98.4 F Pulse Rate 78 79 Respiratory Rate 18 19 20 Blood Pressure 117/58 L 138/69 Pulse Oximetry 96 96 01/21/18 00:00 01/21/18 04:27 01/21/18 08:00 Temperature 99.4 F 99.0 F 98.8 F Pulse Rate 68 75 69 Respiratory Rate 20 20 18 Blood Pressure 130/66 141/66 H 125/64 Pulse Oximetry 95 95 94 L 01/21/18 12:00 Temperature 98.2 F Pulse Rate 84 Respiratory Rate 18 Blood Pressure 132/75 Pulse Oximetry 95 Intake & Output 01/20/18 01/21/18 01/21/18 18:59 06:59 18:59 Intake Total 1762 / 1762 2281 / 2281 599 / 599 Output Total 700 / 700 1200 / 1200 450 / 450 Balance 1062 / 1062 1081 / 1081 149 / 149 Weight 82 kg Intake: IV 682 / 682 1801 / 1801 599 / 599 NS Inj 1,000 ML @ 100 mls/hr IV 382 / 382 1601 / 1601 399 / 399 .CONT .Q10H ROBERT Rx#:[id number] Gentamicin/NS 80 mg Premix 100 200 / 200 100 / 100 100 / 100 ML @ 200 mls/hr IV.SIG Q8H ROBERT Rx#:[id number] Ancef Inj 1,000 MG In NS Inj 100 / 100 100 / 100 100 / 100 100 ML @ 200 mls/hr IV.SIG Q8H ROBERT Rx#:[id number] Oral 1080 / 1080 480 / 480 Output: Urine 700 / 700 1200 / 1200 450 / 450 Other: # Voids 5 1 # Bowel Movements 1 1 Narrative: Neurovascular status intact to left lower extremity. Incision/laceration to left posterior heel with skin intact and well coapting sutures present. Viable tissue noted. No ischemia noted. Capillary refill time under 3 seconds to digits x5 left foot. Palpable DP PT pulses. Negative pain on calf squeeze left lower extremity. Medications and Allergies Active Medications: Active Medications Acetaminophen (Tylenol) 650 mg PO Q4H PRN PRN Reason: fever, pain 1-5 Last Admin: 01/21/18 10:32 Dose: 650 mg Diphenhydramine HCl (Benadryl) 25 mg PO Q6H PRN PRN Reason: ITCHING Sodium Chloride (Ns Inj) 1,000 mls @ 100 mls/hr IV.CONT .Q10H ROBERT Last Infusion: 01/21/18 09:50 Dose: Infused Cefazolin Sodium 1,000 mg/ (Sodium Chloride) 100 mls @ 200 mls/hr IV.SIG Q8H ROBERT Last Infusion: 01/21/18 09:50 Dose: Infused Gentamicin Sulfate/Sodium Chloride (Gentamicin/Ns 80 Mg Premix) 100 mls @ 200 mls/hr IV.SIG Q8H ROBERT Last Infusion: 01/21/18 10:30 Dose: Infused Sodium Chloride (Ns Inj) 500 mls @ 30 mls/hr IV.SIG .Q10H ROBERT Morphine Sulfate (Morphine Inj) 2 mg IV.PUSH Q4H PRN PRN Reason: PAIN 6-10;IF UNABLE TO TAKE PO Ondansetron HCl (Zofran Inj) 4 mg IV.PUSH Q8H PRN PRN Reason: nausea Allergies Allergy/AdvReac Type Severity Reaction Status Date / Time No Known Allergies Allergy Verified 01/17/18 13:13 Home Medications Medication Instructions Recorded Confirmed Type No Known Home Medications 01/17/18 01/17/18 History Results - Labs CBC & Chem 7: 01/17/18 13:45 01/19/18 05:41 - Procedures DATE OF OPERATION: 01/17/2018 SURGEON: Maggie Stockton MD CATERING TRUCK DRIVER: first devika Mancini. PREOPERATIVE DIAGNOSES: 1. Left open calcaneal fracture. 2. Left Achilles tendon tear. 3. Left complex laceration. POSTOPERATIVE DIAGNOSES: 1. Left open calcaneal fracture. 2. Left Achilles tendon tear. 3. Left complex laceration. PROCEDURE PERFORMED: 1. Left open calcaneal bone debridement. 2. Left leg wound debridement/incision and drainage. 3. Closure of complicated wound. 4. Wound VAC application. PATHOLOGY SENT: A fragment of calcaneal bone. Assessment and Plan - Plan 62-year-old male with Achilles tendon rupture and laceration, day 2 status post debridement irrigation with antibiotic bead placement and wound VAC placement Day 2 status post Achilles tendon reattachment to calcaneus with graft placement and laceration repair Dressing to left lower extremity changed, dressing to stay intact until patient follows up in office Patient to follow-up in office on in [place], discussed extensively with patient Please discharge patient on Lovenox 40 mg daily times [address] Hernandez discharged on p.o. Levaquin and Flagyl Continue IV antibiotics until patient is discharged Patient will be discharged tomorrow morning Nonweightbearing left foot, discussed with patient strict nonweightbearing
--- NOTE | 2018-01-21 15:57 | P.PN ---
Subjective Interval history: Follow up for Achilles tendon rupture/laceration s/p I&D. Patient is currently doing well. No chest pain, shortness of breath, fever or chills. Right eye right corner conjunctival hemorrhage is slightly worse. No vision changes or pain. Physical Exam Vital signs: Vital Signs 01/20/18 16:00 01/20/18 20:12 01/21/18 00:00 Temperature 97.8 F 98.4 F 99.4 F Pulse Rate 78 79 68 Respiratory Rate 19 20 20 Blood Pressure 117/58 L 138/69 130/66 Pulse Oximetry 96 96 95 01/21/18 04:27 01/21/18 08:00 01/21/18 12:00 Temperature 99.0 F 98.8 F 98.2 F Pulse Rate 75 69 84 Respiratory Rate 20 18 18 Blood Pressure 141/66 H 125/64 132/75 Pulse Oximetry 95 94 L 95 Intake & Output 01/20/18 01/21/18 01/21/18 18:59 06:59 18:59 Intake Total 1762 / 1762 2281 / 2281 599 / 599 Output Total 700 / 700 1200 / 1200 450 / 450 Balance 1062 / 1062 1081 / 1081 149 / 149 Weight 82 kg Intake: IV 682 / 682 1801 / 1801 599 / 599 NS Inj 1,000 ML @ 100 mls/hr IV 382 / 382 1601 / 1601 399 / 399 .CONT .Q10H ROBERT Rx#:[id number] Gentamicin/NS 80 mg Premix 100 200 / 200 100 / 100 100 / 100 ML @ 200 mls/hr IV.SIG Q8H ROBERT Rx#:[id number] Ancef Inj 1,000 MG In NS Inj 100 / 100 100 / 100 100 / 100 100 ML @ 200 mls/hr IV.SIG Q8H ROBERT Rx#:[id number] Oral 1080 / 1080 480 / 480 Output: Urine 700 / 700 1200 / 1200 450 / 450 Other: # Voids 5 1 # Bowel Movements 1 1 Narrative: GENERAL: Alert, Oriented x 3, NAD. SKIN: Warm and dry. HEAD: Normocephalic. EYES: No scleral icterus. Right corner of right eye has slight conjunctival hemorrhage. NECK: Supple, trachea midline. No JVD or lymphadenopathy. CARDIOVASCULAR: Regular rate and rhythm without murmurs, gallops, or rubs. RESPIRATORY: Breath sounds equal bilaterally. No accessory muscle use. GASTROINTESTINAL: Abdomen soft, non-tender, nondistended. MUSCULOSKELETAL: No cyanosis, or edema. Left ankle wrapped in dressing/miguel wound vac. BACK: Nontender without obvious deformity. No CVA tenderness. Results - Labs CBC & Chem 7: 01/17/18 13:45 01/19/18 05:41 - Procedures DATE OF OPERATION: 01/17/2018 SURGEON: Maggie Stockton MD ROAD MENDER: first devika Mancini. PREOPERATIVE DIAGNOSES: 1. Left open calcaneal fracture. 2. Left Achilles tendon tear. 3. Left complex laceration. POSTOPERATIVE DIAGNOSES: 1. Left open calcaneal fracture. 2. Left Achilles tendon tear. 3. Left complex laceration. PROCEDURE PERFORMED: 1. Left open calcaneal bone debridement. 2. Left leg wound debridement/incision and drainage. 3. Closure of complicated wound. 4. Wound VAC application. PATHOLOGY SENT: A fragment of calcaneal bone. Assessment and Plan - Plan Mr. Durán is a patient is a 62 y/o male with no significant past medical history who presented to ER with left ankle injury. Left sided Achilles tendon rupture and laceration - s/p I&D with abx bead placement and wound vac. - Currently on post-op abx. - Morphine for pain. - Discussed with Dr. Alicea. Will plan on discharging patient on Levaquin and Flagyl. subconjunctival hemorrhage - Continue to monitor. No vision changes. Full code. Probable discharge tomorrow AM.
[2018-01-22] MEDS: Gentamicin/NS 80 mg Premix 100 ML IV.SIG SCH ×2 (03:11→09:09)
[2018-01-22] MEDS: Sod Chloride 0.9% Inj 1,000 ML IV.CONT SCH (03:15)
[2018-01-22] MEDS: Acetaminophen 325 MG Tablet PO PRN ×2 (04:51→11:18)
--- NOTE | 2018-01-22 09:08 | P.DS ---
Date of admission: 01/17/18 14:18 Primary care physician: No Primary Care Physician Brief History from admission: patient is a 62 y/o male with no significant past medical history who presented to ER with left ankle injury. he says that this morning while he was working on the lawn the tip of the mower hit his left ankle. he denies any other injuries. the pain was mild at the time of my evaluation and otherwise he denies any other complaints. DS: Medications - Discharge Medications Prescriptions: enoxaparin [Lovenox] 40 mg SUBCUT DAILY #21 ml levofloxacin [Levaquin] 750 mg PO DAILY #14 tab metronidazole [Flagyl] 500 mg PO TID #42 tab DS: Summary Hospital Course: Mr. Durán is a patient is a 62 y/o male with no significant past medical history who presented to ER with left ankle injury. Left sided Achilles tendon rupture and laceration - s/p I&D with abx bead placement and wound vac. - Currently on post-op abx. - Morphine for pain. - Discussed with Dr. Alicea. Will discharge patient on Levaquin and Flagyl. subconjunctival hemorrhage - Continue to monitor. No vision changes. Full code. - Time Spent with Patient Total time spent providing and/or coordinating discharge services: Less than 30 minutes - Quality: VTE Deep Vein Thrombosis/Pulmonary Embolism Present on Admission: No Exam Vital signs: Vital Signs 01/21/18 12:00 01/21/18 15:58 01/21/18 20:00 Temperature 98.2 F 98.7 F 99.2 F Pulse Rate 84 82 77 Respiratory Rate 18 18 18 Blood Pressure 132/75 154/79 H 151/77 H Pulse Oximetry 95 94 L 94 L 01/21/18 22:37 01/22/18 00:00 01/22/18 05:45 Temperature 99.1 F Pulse Rate 71 Respiratory Rate 18 18 Blood Pressure 152/83 H Pulse Oximetry 97 Intake & Output 01/21/18 01/22/18 01/22/18 18:59 06:59 18:59 Intake Total 699 / 699 780 / 780 Output Total 2250 / 2250 500 / 500 Balance -1551 / -1551 280 / 280 Weight 82 kg Intake: IV 699 / 699 300 / 300 NS Inj 1,000 ML @ 100 mls/hr IV 399 / 399 .CONT .Q10H ROBERT Rx#:[id number] Gentamicin/NS 80 mg Premix 100 100 / 100 200 / 200 ML @ 200 mls/hr IV.SIG Q8H ROBERT Rx#:[id number] Ancef Inj 1,000 MG In NS Inj 200 / 200 100 / 100 100 ML @ 200 mls/hr IV.SIG Q8H ROBERT Rx#:[id number] Oral 480 / 480 Output: Urine 2250 / 2250 500 / 500 Other: Mode Setting Left Ankle Intermittent # Voids 1 1 # Bowel Movements 0 Narrative: GENERAL: Alert, Oriented x 3, NAD. SKIN: Warm and dry. HEAD: Normocephalic. EYES: No scleral icterus. Right corner of right eye has slight conjunctival hemorrhage. NECK: Supple, trachea midline. No JVD or lymphadenopathy. CARDIOVASCULAR: Regular rate and rhythm without murmurs, gallops, or rubs. RESPIRATORY: Breath sounds equal bilaterally. No accessory muscle use. GASTROINTESTINAL: Abdomen soft, non-tender, nondistended. MUSCULOSKELETAL: No cyanosis, or edema. Left ankle wrapped in dressing/miguel wound vac. BACK: Nontender without obvious deformity. No CVA tenderness. Results Procedures completed during hospitalization: DATE OF OPERATION: 01/17/2018 SURGEON: Maggie Stockton MD COTTON HEADER: first devika Mancini. PREOPERATIVE DIAGNOSES: 1. Left open calcaneal fracture. 2. Left Achilles tendon tear. 3. Left complex laceration. POSTOPERATIVE DIAGNOSES: 1. Left open calcaneal fracture. 2. Left Achilles tendon tear. 3. Left complex laceration. PROCEDURE PERFORMED: 1. Left open calcaneal bone debridement. 2. Left leg wound debridement/incision and drainage. 3. Closure of complicated wound. 4. Wound VAC application. PATHOLOGY SENT: A fragment of calcaneal bone. Completed studies during hospitalization: Pending at discharge 01/17/18 07:30 Surgical [PTH] Routine - Impressions ITS Impressions Ankle MRI 01/17/18 13:32 CONCLUSION: 1. There has been a fracture at the top the calcaneus and retraction of the Achilles tendon approximately 3.4 cm. Bone fragment with the Achilles is better seen on the plain film. The bone fragment more involves lateral insertion of the Achilles. Ankle X-Ray 01/19/18 00:00 CONCLUSION: Postoperative change as described above at the posterior calcaneus and hindfoot region. Discharge Plan - Discharge Disposition Patient Disposition: 01 Discharge Home - Discharge Condition Condition: Good - Discharge Order Discharge Orders: Discharge Order (Routine); Ordered 01/22/18 Ordered By: Isidro Hernandez Podiatry Clear for Discharge (Routine); Ordered 01/21/18 Ordered By: Elle Palafox - Discharge Details Discharge Comment: Please discharge on Lovenox 40 mg subcu times 21 days; oral antibiotic discharge discussed with Dr. Hernandez - Physicians Team Primary Care Provider: Primary Care Deirdrei,Sandi Attending Provider: Isidro Hernandez Other Providers: Maggie Stockton, ELLA
[2018-01-22] MEDS ORDERED: Enoxaparin Inj 40 MG/0.4 ML Syringe SQ SCH (11:00)
[2018-01-22 14:53] VITALS: RESP 18; TEMP 98
[2018-01-22 14:54] VITALS: BP 132/75; PULSE 70; O2SAT 95
--- NOTE | 2018-02-05 06:36 | MP ---
cc: Elle Palafox DPM DATE OF OPERATION: SURGEON: Elle Palafox DPM. RESIDENTIAL DIRECT SUPPORT PROFESSIONAL: None. PREOPERATIVE DIAGNOSES: 1. Left calcaneal fracture. 2. Left Achilles tendon avulsion from calcaneus. POSTOPERATIVE DIAGNOSES: 1. Left calcaneal fracture. 2. Left Achilles tendon avulsion from calcaneus. PROCEDURE: 1. Debridement and irrigation of open fracture with removal of antibiotic beads. 2. Reattachment of Achilles tendon to the calcaneus. ANESTHESIA: General. HEMOSTASIS: None. ESTIMATED BLOOD LOSS: 20 mL. MATERIALS: Arthrex SpeedBridge. INJECTABLES: 20 mL of 0.5% Marcaine plain. COMPLICATIONS: None. INDICATIONS FOR PROCEDURE: The patient is a 65-year-old male who recently underwent debridement and irrigation of the left posterior calcaneus and Achilles secondary to lawnmower injury. Antibiotic beads were placed to the left posterior calcaneus and Achilles tendon injury. The patient denies any nausea, vomiting, fevers, or chills. He has been on open fracture antibiotic protocol. The patient understands all risks, benefits, alternatives, and complications associated with proceeding with surgical intervention and would like to proceed with surgical intervention. DESCRIPTION OF PROCEDURE: The patient was brought to the operating room, placed on the operating room table in the prone position. All bony prominences were well padded. A thigh tourniquet was placed to the left lower extremity. The left lower extremity was then prepped and draped in the usual sterile manner. Attention was then directed to the posterior calcaneus where there was noted to be a laceration, which was repaired utilizing Prolene. Prolene was removed from site. Site was copiously irrigated with 3 liters of normal saline with gentamicin. Vancomycin beads were removed from the site. There was noted to be a small Achilles tendon avulsion. Repeat irrigation was performed with 3 liters of normal saline. Arthrex SpeedBridge was then utilized to capture the distal portion of the Achilles tendon and reattached utilizing anchors to calcaneus. It was noted to be adequate and anatomic fixation of the Achilles tendon to posterior calcaneus and was once again copiously irrigated. Neox cord graft was placed over tendon bone interface as well as over Achilles tendon. The site was closed utilizing 2-0 and 3-0 Monocryl as well as 2-0 and 3-0 Prolene and the left lower extremity was casted in plantar flexion. Adaptic and a [employer] ANDREY wound vac was applied to the posterior ankle, followed by 4 x 4's, cast padding, and a modified posterior splint was applied. The patient tolerated the procedure and anesthesia well. He was transferred from the OR to PACU with vitals stable and neurovascular is intact. ELLA Serrato/zan , 05:54 AM , 06:03 AM
== END 2018-01-22 15:04 | disposition home or self-care (01) ==
LOC: NEDA 12:46 → NEPD 12:46 → NEPGCP 15:42 → N07 17:50
PROVIDERS: ADMIT Hospitalist; ATTEND Hospitalist

== ENCOUNTER 2018-02-09 19:36 | Inpatient (IN) ==
[2018-02-09 22:37] LABS: Baso % (Auto) 0.6 % (0.0-2.0); Eos # (Auto) 0.4 th/mm3 (0.0-0.4); Eos % (Auto) 4.4 % (0.0-4.0); Hematocrit 44.1 % (39.0-51.0); Lymph # (Auto) 1.9 th/mm3 (1.0-4.8); Lymph % (Auto) 24.2 % (9.0-44.0); Mean Corpuscular HGB Conc 34.1 % (32.0-36.0); Mean Corpuscular Hemoglobin 32.6 pg (27.0-34.0); Mean Corpuscular Volume 95.5 fL (80.0-100.0); Mean Platelet Volume 8.4 fL (7.0-11.0); Mono # (Auto) 0.7 th/mm3 (0.0-0.9); Mono % (Auto) 9.2 % (0.0-8.0); Neut # (Auto) 4.9 th/mm3 (1.8-7.7); Neut % (Auto) 61.6 % (16.0-70.0); Platelet Count 260 th/mm3 (150-450); Red Blood Count 4.61 mil/mm3 (4.50-5.90); Red Cell Distribution Width 13.7 % (11.6-17.2)
[2018-02-09 22:49] LABS: Calcium 8.6 mg/dL (8.5-10.1); Carbon Dioxide 30.8 meq/L (21.0-32.0)
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
[2018-02-09] MEDS ORDERED: Vancomycin Consult Pharmacy OTHER PRN (23:37)
[2018-02-09] MEDS ORDERED: Bisacodyl 10 MG Supp RECTAL PRN (23:39)
[2018-02-09] MEDS ORDERED: Acetaminophen 325 MG Tablet PO PRN (23:39)
--- NOTE | 2018-02-09 23:41 | P.HPIM ---
History of Present Illness Primary Care Physician: UNKNOWN History of Present Illness: This is a 62-year-old male with a PMH of Left Foot Injury and Tobacco Abuse who was sent to the ER for admission by Dr. Palafox. Previous admit 01/17-01/22/18 for left ankle injury w/ balloon sander, s/p Achilles tendon rupture/laceration s/p I&D w/ Abx bead placement and wound VAC on 01/17/[address] Stockton, d/c'd on Levaquin/Flagyl. Was seen in office approx 10 days ago and had sutures removed , seen again today and noted to have non-healing wound w/ infection, sent to ER by Dr. Palafox for IV Abx and admission for surgical intervention. Pt denies fever/chills. No significant pain complaints. On arrival, BP 125/64, HR 83, O2 sat 96% on RA, Afebrile. - Diagnosis (1) Post op infection (2) Tobacco abuse Review of Systems PAST FAMILY HISTORY: Reviewed. No h/o DM or CAD All other systems reviewed negative except as stated in HPI PMFSH - History History Provided By: Patient - Medical History Medical History: Medical History (Last Reviewed 02/09/18 @ 23:28 by Shahida Liang MD) Patient denies medical problems - Surgical History Surgical History: Surgical History (Last Reviewed 02/09/18 @ 23:28 by Shahida Liang MD) No history of previous surgery - Family History Family History: Family History (Last Reviewed 02/09/18 @ 23:28 by Shahida Liang MD) Other No pertinent family history - Tobacco History Second Hand Smoke Exposure: Yes Tobacco Use In Past 30 Days: Yes Smoking Status: Current some day smoker Tobacco Type: Cigarettes - Alcohol History How Often Do You Have a Drink Containing Alcohol: 2 to 4 times a month - Substance Use History Substance History: No History of Abuse - Travel History Recent Travel in the [place] Within the Last 8 Weeks: No Recent Travel Out of the Country Within the Last 8 Weeks: No - Immunization History Tetanus Immunization: <5 Years Medications and Allergies Allergies Allergy/AdvReac Type Severity Reaction Status Date / Time No Known Allergies Allergy Verified 02/09/18 20:26 Home Medications Medication Instructions Recorded Confirmed Type aspirin 325 mg PO DAILY 02/09/18 02/09/18 History Exam Vital signs: Vital Signs 02/09/18 20:21 02/09/18 22:01 Temperature 97.9 F Pulse Rate 83 89 Respiratory Rate 20 Blood Pressure 125/64 140/84 Pulse Oximetry 96 Intake & Output 02/09/18 02/09/18 02/10/18 06:59 18:59 06:59 Weight 90.718 kg Narrative: PE: GENERAL: Pleasant middle-aged white male in no acute distress. SKIN: Focused skin assessment warm and dry. HEENT: PERRLA, EOMI. No scleral icterus or conjunctival pallor. No lid lag or facial droop. CARDIOVASCULAR: Regular rate and rhythm. No obvious murmurs to auscultation. No chest tenderness to palpation. RESPIRATORY: No obvious rhonchi or wheezing. Clear to auscultation. Breath sounds equal bilaterally. GASTROINTESTINAL: Abdomen soft, non-tender, nondistended. BS normal. MUSCULOSKELETAL: Extremities without clubbing, cyanosis, or edema. No obvious deformities. Left foot wound w/ dehiscence, no significant discharge NEUROLOGICAL: Awake, alert and oriented x4. No focal neurologic deficits. Moving both upper and lower extremities spontaneously. PSYCHIATRIC: Appropriate mood and affect. Insight and judgment normal. Results - Labs CBC & Chem 7: 02/09/18 22:10 02/09/18 22:10 Labs: Short CBC 02/09/18 Range/Units 22:10 WBC 8.0 (4.0-11.0) th/mm3 Hgb 15.0 (13.0-17.0) gm/dL Hct 44.1 (39.0-51.0) % Plt Count 260 (150-450) th/mm3 BMP 02/09/18 22:10 Sodium 140 Potassium 4.0 Chloride 103 Carbon Dioxide 30.8 BUN 18 Creatinine 1.13 Calcium 8.6 Caprini VTE Risk Assessment Caprini VTE Risk Assessment: No/Low Risk (score <= 1) VTE Mechanical Exception: LE injury/wound Caprini Risk Assessment Model: Point Value = 1 Point Value = 2 Point Value = 3 Point Value = 5 Age 41-60 Minor surgery BMI > 25 kg/m2 Swollen legs Varicose veins or History of unexplained or recurrent spontaneous Oral contraceptives or hormone replacement Sepsis (< 1 month) Serious lung disease, including pneumonia (< 1 month) Abnormal pulmonary function Acute myocardial infarction Congestive heart failure (< 1 month) History of inflammatory bowel disease Medical patient at bed rest Age 61-74 Arthroscopic surgery Major open surgery (> 45 min) Laparoscopic surgery (> 45 min) Malignancy Confined to bed (> 72 hours) Immobilizing plaster cast Central venous access Age >= 75 History of VTE Family history of VTE Factor V Leiden Prothrombin [id number] Lupus anticoagulant Anticardiolipin antibodies Elevated serum homocysteine Heparin-induced thrombocytopenia Other congenital or acquired thrombophilia Stroke (< 1 month) Elective arthroplasty Hip, pelvis, or leg fracture Acute spinal cord injury (< 1 month) Prophylaxis Regimen: Total Risk Factor Score Risk Level Prophylaxis Regimen 0-1 Low Early ambulation 2 Moderate Order ONE of the following: *Sequential Compression Device (SCD) *Heparin 5000 units SQ BID 3-4 Higher Order ONE of the following medications: *Heparin 5000 units SQ TID *Enoxaparin/Lovenox 40 mg SQ daily (WT < 150 kg, CrCl > 30 mL/min) *Enoxaparin/Lovenox 30 mg SQ daily (WT < 150 kg, CrCl > 10-29 mL/min) *Enoxaparin/Lovenox 30 mg SQ BID (WT < 150 kg, CrCl > 30 mL/min) AND/OR *Sequential Compression Device (SCD) 5 or more Highest Order ONE of the following medications: *Heparin 5000 units SQ TID (Preferred with Epidurals) *Enoxaparin/Lovenox 40 mg SQ daily (WT < 150 kg, CrCl > 30 mL/min) *Enoxaparin/Lovenox 30 mg SQ daily (WT < 150 kg, CrCl > 10-29 mL/min) *Enoxaparin/Lovenox 30 mg SQ BID (WT < 150 kg, CrCl > 30 mL/min) AND *Sequential Compression Device (SCD) Assessment and Plan - Assessment (1) Post op infection Code(s): T81.40XA - Infection following a procedure, unspecified, initial encounter Status: Acute (2) Tobacco abuse Code(s): Z72.0 - Tobacco use Status: Acute - Plan A/P: 1. Post Op Wound Infection: Left Foot, s/p left Achilles tendon rupture/ laceration w/ I&D and antibiotic bead placement on 01/17/[address] Stockton, seen in office today by Dr Palafox and referred to ER for admission/IV Abx and surgical intervention. NPO after midnight, start IV Vanc/Cefepime, analgesics/ antiemetics as needed. Pre-op labs reviewed and unremarkable. 2. Tobacco Abuse: Pt counselled. NicoDerm prn if needed. 3. DVT Prophylaxis: SCD/Teds 4. Social work for d/c planning as needed. 5. Case discussed w/ ER physician at length, labs/records/imaging reviewed by me.
[2018-02-10] MEDS: Sod Chloride 0.9% Inj 1,000 ML IV.CONT SCH ×2 (00:08→13:12)
[2018-02-10] MEDS ORDERED: Vancomycin Inj 1,300 MG in Sodium Chlor 0.9% Inj 500 ML IV.SIG ONE (01:00)
[2018-02-10] MEDS: Senna/Docusate Sodium 8.6/50 MG Tablet PO SCH ×2 (08:16→21:54)
[2018-02-10 10:16] LABS: Baso % (Auto) 0.8 % (0.0-2.0); Eos # (Auto) 0.3 th/mm3 (0.0-0.4); Eos % (Auto) 6.3 % (0.0-4.0); Hematocrit 39.6 % (39.0-51.0); Hemoglobin 13.5 gm/dL (13.0-17.0); Lymph # (Auto) 1.2 th/mm3 (1.0-4.8); Lymph % (Auto) 22.3 % (9.0-44.0); Mean Corpuscular HGB Conc 34.1 % (32.0-36.0); Mean Corpuscular Hemoglobin 32.8 pg (27.0-34.0); Mean Corpuscular Volume 96.2 fL (80.0-100.0); Mean Platelet Volume 8.4 fL (7.0-11.0); Mono # (Auto) 0.5 th/mm3 (0.0-0.9); Mono % (Auto) 9.8 % (0.0-8.0); Neut # (Auto) 3.4 th/mm3 (1.8-7.7); Neut % (Auto) 60.8 % (16.0-70.0); Platelet Count 223 th/mm3 (150-450); Red Blood Count 4.12 mil/mm3 (4.50-5.90); Red Cell Distribution Width 13.9 % (11.6-17.2); White Blood Count 5.5 th/mm3 (4.0-11.0)
[2018-02-10 10:34] LABS: Alanine Aminotransferase 28 U/L (12-78); Anion Gap 5 meq/L (5-15); Aspartate Aminotransferase 17 U/L (15-37); Blood Urea Nitrogen 14 mg/dL (7-18); Calcium 7.8 mg/dL (8.5-10.1); Carbon Dioxide 26.9 meq/L (21.0-32.0); Chloride 110 meq/L (98-107); Glomerular Filtration Rate 75 mL/min (>89); Glucose,Random 104 mg/dL (74-106); Potassium 4.1 meq/L (3.5-5.1); Sodium 142 meq/L (136-145)
[2018-02-10 10:36] LABS: Alkaline Phosphatase 53 U/L (45-117); Total Protein 6.4 g/dL (6.4-8.2)
[2018-02-10] MEDS: Vancomycin Inj 1,250 MG in Sodium Chlor 0.9% Inj 250 ML IV.SIG SCH (13:11)
--- NOTE | 2018-02-10 15:47 | P.PN ---
Subjective Interval history: Follow-up for left foot Achilles tendon rupture,S/P I/D and wound vac now with poorly healing wound: Patient seen and examined. Minimal pain. No chest pain, no shortness of breath, no nausea, no vomiting, no diarrhea. N.p.o. Patient wants to know what time surgery is happening Physical Exam Vital signs: Vital Signs 02/09/18 20:21 02/09/18 22:01 02/10/18 04:00 Temperature 97.9 F 97.2 F L Pulse Rate 83 89 82 Respiratory Rate 20 18 Blood Pressure 125/64 140/84 131/85 Pulse Oximetry 96 98 02/10/18 08:00 Temperature 97.2 F L Pulse Rate 70 Respiratory Rate 18 Blood Pressure 105/66 Pulse Oximetry 95 Intake & Output 02/09/18 02/10/18 02/10/18 18:59 06:59 18:59 Intake Total 790 / 790 1362.5 / 1362.5 Balance 790 / 790 1362.5 / 1362.5 Weight 92.9 kg Intake: IV 790 / 790 1362.5 / 1362.5 NS Inj 1,000 ML @ 100 mls/hr IV 177 / 177 1000 / 1000 .CONT .Q10H [facility] Rx#:[id number] Maxipime Inj 1,000 MG In NS Inj 100 / 100 100 / 100 100 ML @ 200 mls/hr IV.SIG Q12H [facility] Rx#:[id number] Vancomycin Inj 1,250 MG In NS 262.5 / 262.5 Inj 250 ML @ 250 mls/hr IV.SIG Q12H [facility] Rx#:[id number] Vancomycin Inj 1,300 MG In NS 513 / 513 Inj 500 ML @ 250 mls/hr IV.SIG ONCE ONE Rx#:[id number] Other: # Voids 1 Weight On Admission 90.7 kg Narrative: GENERAL: Pleasant middle-aged white male in no acute distress. SKIN: Focused skin assessment warm and dry. HEENT: PERRLA, EOMI. No scleral icterus or conjunctival pallor. No lid lag or facial droop. CARDIOVASCULAR: Regular rate and rhythm. No obvious murmurs to auscultation. No chest tenderness to palpation. RESPIRATORY: No obvious rhonchi or wheezing. Clear to auscultation. Breath sounds equal bilaterally. GASTROINTESTINAL: Abdomen soft, non-tender, nondistended. BS normal. MUSCULOSKELETAL: Extremities without clubbing, cyanosis, or edema. No obvious deformities. Left foot w/ dressing clean dry and intact. Left foot swelling, intact sensation, pedal pulse 2+. NEUROLOGICAL: Awake, alert and oriented x4. No focal neurologic deficits. Moving both upper and lower extremities spontaneously. PSYCHIATRIC: Appropriate mood and affect. Insight and judgment normal. Results - Labs CBC & Chem 7: 02/10/18 09:40 02/10/18 09:40 Laboratory Results - last 24 hr 02/09/18 02/09/18 02/10/18 22:10 22:10 09:40 WBC 8.0 5.5 RBC 4.61 4.12 L Hgb 15.0 13.5 Hct 44.1 39.6 MCV 95.5 96.2 MCH 32.6 32.8 MCHC 34.1 34.1 RDW 13.7 13.9 Plt Count 260 223 MPV 8.4 8.4 Neut % (Auto) 61.6 60.8 Lymph % (Auto) 24.2 22.3 [place] % (Auto) 9.2 H 9.8 H Eos % (Auto) 4.4 H 6.3 H Baso % (Auto) 0.6 0.8 Neut # (Auto) 4.9 3.4 Lymph # (Auto) 1.9 1.2 [place] # (Auto) 0.7 0.5 Eos # (Auto) 0.4 0.3 Baso # (Auto) 0.0 0.0 WBC Differential . . Differential Comment Auto diff final Auto diff final Sodium 140 Potassium 4.0 Chloride 103 Carbon Dioxide 30.8 Anion Gap 6 BUN 18 Creatinine 1.13 Estimated GFR 66 L Random Glucose 105 Calcium 8.6 Total Bilirubin AST ALT Alkaline Phosphatase Total Protein Albumin 02/10/18 09:40 WBC RBC Hgb Hct MCV MCH MCHC RDW Plt Count MPV Neut % (Auto) Lymph % (Auto) [place] % (Auto) Eos % (Auto) Baso % (Auto) Neut # (Auto) Lymph # (Auto) [place] # (Auto) Eos # (Auto) Baso # (Auto) WBC Differential Differential Comment Sodium 142 Potassium 4.1 Chloride 110 H Carbon Dioxide 26.9 Anion Gap 5 BUN 14 Creatinine 1.01 Estimated GFR 75 L Random Glucose 104 Calcium 7.8 L D Total Bilirubin 0.5 AST 17 ALT 28 Alkaline Phosphatase 53 Total Protein 6.4 Albumin 3.0 L Microbiology 02/09/18 22:10 Blood - Peripheral Aerobic Blood Culture - Preliminary No growth in 1 day 02/09/18 22:10 Blood - Peripheral Anaerobic Blood Culture - Preliminary No growth in 1 day 02/09/18 22:15 Blood - Peripheral Aerobic Blood Culture - Preliminary No growth in 1 day 02/09/18 22:15 Blood - Peripheral Anaerobic Blood Culture - Preliminary No growth in 1 day Assessment and Plan - Assessment (1) Post op infection Code(s): T81.40XA - Infection following a procedure, unspecified, initial encounter Status: Acute (2) Tobacco abuse Code(s): Z72.0 - Tobacco use Status: Acute - Plan This is a 62-year-old male with a PMH of Left Foot Injury and Tobacco Abuse who was sent to the ER for admission by Dr. Palafox. 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 Stockton, d/c'd on Levaquin/Flagyl. Was seen in office approx 10 days ago and had sutures removed , seen again yesterday and noted to have non-healing wound w/ infection, sent to ER by Dr. Palafox for IV Abx and admission for surgical intervention. Post Op Wound Infection: Left Foot, s/p left Achilles tendon rupture/ laceration w/ I&D and antibiotic bead placement on 01/17/18 Patient presented with right foot wound with infection -Podiatry called per RN, no surgery planned for today. Will resume diet Podiatry following patient Continue with antibiotics, vancomycin and cefepime. Continue to follow cultures -Pain management Tobacco Abuse -Pt counselled -NicoDerm prn if needed. DVT Prophylaxis: SCD/Teds Further recommendations per podiatry Code Status: Full code Discussed Condition With: RN, pt, CM Discharge Planning: Not ready for dc
--- NOTE | 2018-02-10 16:39 | P.CON ---
History of Present Illness Service: Foot and ankle surgery/podiatry Consult date: 02/10/18 Reason for Consult: Left foot posterior wound Primary Care Provider: UNKNOWN Chief Complaint: Left foot posterior wound status post Achilles tendon repair 2/ 2 trauma History of Present Illness: Podiatry consulted for this 62-year-old male with past medical history of left foot injury and current history of smoking sent to the emergency department for admission by sales assistants and salespersons. He was admitted from January 17 - January 22 for left posterior ankle injury involving a lawnmower subsequently causing a Achilles tendon rupture. He underwent incision and drainage with antibiotic bead placement and wound VAC placement on January [address] Stockton. He then underwent debridement and irrigation with Achilles tendon repair. He was DC'd on Levaquin and Flagyl. However was seen in office yesterday with increased erythema and edema and breakdown of skin. There is noted to be exposed bone and tendon. [facility] - History History Provided By: Patient - Medical History Medical History: Medical History (Last Reviewed 02/10/18 @ 17:55 by Elle Palafox DPM) Patient denies medical problems - Surgical History Surgical History: Surgical History (Last Reviewed 02/10/18 @ 17:55 by Elle Palafox DPM) No history of previous surgery - Family History Family History: Family History (Last Reviewed 02/10/18 @ 17:55 by Elle Palafox DPM) Other No pertinent family history - Tobacco History Second Hand Smoke Exposure: Yes Tobacco Use In Past 30 Days: Yes Smoking Status: Current some day smoker Tobacco Type: Cigarettes - Alcohol History How Often Do You Have a Drink Containing Alcohol: 2 to 4 times a month - Substance Use History Substance History: No History of Abuse - Travel History Recent Travel in the [place] Within the Last 8 Weeks: No Recent Travel Out of the Country Within the Last 8 Weeks: No - Immunization History Tetanus Immunization: <5 Years Hx Influenza Vaccine This Season: Yes Medications and Allergies Active Medications: Active Medications Acetaminophen (Tylenol) 650 mg PO Q4H PRN PRN Reason: Temp > 100.4 Hydrocodone Bitart/Acetaminophen ([place] 10/325) 1 tab PO Q4H PRN PRN Reason: PAIN 6-10 Hydrocodone Bitart/Acetaminophen ([place] 5/325) 1 tab PO Q4H PRN PRN Reason: PAIN 3-5 Al Hydroxide/Mg Hydroxide (Milk Of Magnesia Liq) 30 ml PO Q12H PRN PRN Reason: Mild Constipation Bisacodyl (Dulcolax Supp) 10 mg RECTAL DAILY PRN PRN Reason: SEVERE CONSITIPATION Cefepime HCl 1,000 mg/ Sodium (Chloride) 100 mls @ 200 mls/hr IV.SIG Q12H [facility] Last Infusion: 02/10/18 14:27 Dose: Infused Sodium Chloride (Ns Inj) 1,000 mls @ 100 mls/hr IV.CONT .Q10H [facility] Last Admin: 02/10/18 13:12 Dose: 100 mls/hr Vancomycin HCl 1,250 mg/ (Sodium Chloride) 262.5 mls @ 250 mls/hr IV.SIG Q12H [facility] Last Infusion: 02/10/18 14:27 Dose: Infused Lactulose (Lactulose Liq) 30 ml PO DAILY PRN PRN Reason: SEVERE CONSITIPATION Miscellaneous Information ([facility] Ordered Lab Info) 0 each OTHER ONCE ONE Stop: 02/11/18 00:46 Ondansetron HCl (Zofran Inj) 4 mg IV.PUSH Q6H PRN PRN Reason: NAUSEA OR VOMITING Pharmacy Profile Note (Vancomycin Consult Pharmacy) 1 each OTHER UNSCH PRN PRN Reason: Pharmacy to dose Senna/Docusate Sodium (Elsie-Colace) 1 tab PO BID [facility] Last Admin: 02/10/18 08:16 Dose: Not Given Sennosides (Senokot) 17.2 mg PO Q12H PRN PRN Reason: Moderate Constipation Allergies Allergy/AdvReac Type Severity Reaction Status Date / Time No Known Allergies Allergy Verified 02/09/18 20:26 Home Medications Medication Instructions Recorded Confirmed Type aspirin 325 mg PO DAILY 02/09/18 02/09/18 History Physical Exam Vital signs: Vital Signs 02/09/18 20:21 02/09/18 22:01 02/10/18 04:00 Temperature 97.9 F 97.2 F L Pulse Rate 83 89 82 Respiratory Rate 20 18 Blood Pressure 125/64 140/84 131/85 Pulse Oximetry 96 98 02/10/18 08:00 Temperature 97.2 F L Pulse Rate 70 Respiratory Rate 18 Blood Pressure 105/66 Pulse Oximetry 95 Intake & Output 02/09/18 02/10/18 02/10/18 18:59 06:59 18:59 Intake Total 790 / 790 1362.5 / 1362.5 Balance 790 / 790 1362.5 / 1362.5 Weight 92.9 kg Intake: IV 790 / 790 1362.5 / 1362.5 NS Inj 1,000 ML @ 100 mls/hr IV 177 / 177 1000 / 1000 .CONT .Q10H [facility] Rx#:[id number] Maxipime Inj 1,000 MG In NS Inj 100 / 100 100 / 100 100 ML @ 200 mls/hr IV.SIG Q12H [facility] Rx#:[id number] Vancomycin Inj 1,250 MG In NS 262.5 / 262.5 Inj 250 ML @ 250 mls/hr IV.SIG Q12H [facility] Rx#:[id number] Vancomycin Inj 1,300 MG In NS 513 / 513 Inj 500 ML @ 250 mls/hr IV.SIG ONCE ONE Rx#:[id number] Other: # Voids 1 Weight On Admission 90.7 kg Narrative: GENERAL: This is a well-nourished, well-developed patient, in no apparent distress. SKIN: Posterior ankle ulceration HEAD: Atraumatic. EYES: Pupils equal round and reactive. ENT: Airway patent. NECK: Trachea midline. RESPIRATORY: Nonlabored breathing. MUSCULOSKELETAL:. Negative Homans sign bilaterally. NEUROLOGICAL: Awake and alert. Normal speech. Lower extremity physical exam: Vascular: Dorsalis pedis 2/4, posterior tibial 2/4. Capillary refill time within normal limits to digits x5 bilateral foot. Edema present left foot and ankle Neuro: Gross sensation intact to bilateral lower extremity. Pinpoint sensation intact. No hyperalgesia noted to bilateral lower extremity Dermatology: Normal temperature and turgor to bilateral lower extremity. Fibrotic ulceration noted to posterior heel with breakdown of flap from lawnmower incident. Exposed Achilles tendon and bone, serous drainage, mild erythematous borders. Musculoskeletal: Tender to palpation to posterior ankle at site of ulceration. No gross osseous deformities Assessment and Plan - Plan 62-year-old male status post Achilles avulsion with left calcaneal fracture secondary to lawnmower, admitted 01/17 for injury and underwent debridement and irrigation with wound VAC placement, status post subsequent debridement and irrigation with Achilles tendon repair Patient examined and evaluated with all questions answered To the OR tomorrow for left posterior ankle debridement irrigation with wound VAC placement Anticipate subsequent surgery with graft placement on this admission Patient is to offload left foot, will order soft Multi-Podus boots Consent to be obtained N.p.o. after midnight Alternatives risks benefits and complications associated with surgery discussed with patient Continue IV antibiotics Will obtain OR cultures
[2018-02-11] MEDS ORDERED: Pharmacy Ordered Lab Info OTHER ONE (00:45)
[2018-02-11] MEDS: Vancomycin Inj 1,250 MG in Sodium Chlor 0.9% Inj 250 ML IV.SIG SCH ×2 (01:07→16:13)
[2018-02-11] MEDS: Sod Chloride 0.9% Inj 1,000 ML IV.CONT SCH ×4 (01:09→20:17)
[2018-02-11] MEDS ORDERED: Chlorhexidine Gluconate 2% 1 Pack (2 Cloths) TOPICAL ONE (02:14)
[2018-02-11] MEDS ORDERED: Sodium Chloride 0.9% 2 ML Flush PRN IV.FLUSH (02:35)
[2018-02-11] MEDS ORDERED: Sodium Chlor 0.9% Inj 500 ML IV.SIG SCH (03:00)
[2018-02-11] MEDS ORDERED: Bupivacaine 0.5% Inj 50 ML MDV Vial ONE (07:34)
[2018-02-11] MEDS ORDERED: Lidocaine PF 1% Inj 10 ML Amp ONE (07:34)
--- NOTE | 2018-02-11 08:15 | P.PNPOD ---
Subjective Interval history: Patient seen preoperatively. Denies any N,V,F,Ch. Physical Exam Vital signs: Vital Signs 02/10/18 12:00 02/10/18 16:00 02/10/18 20:00 Temperature 98 F 97.8 F 97.5 F L Pulse Rate 69 66 86 Respiratory Rate 18 18 18 Blood Pressure 105/56 L 106/62 119/56 L Pulse Oximetry 95 96 95 02/11/18 00:00 Temperature 97.9 F Pulse Rate 72 Respiratory Rate 18 Blood Pressure 120/64 Pulse Oximetry 95 Intake & Output 02/10/18 02/11/18 02/11/18 19:59 06:59 18:59 Intake Total Output Total Balance Weight Intake: IV NS Inj 1,000 ML @ 100 mls/hr IV .CONT .Q10H [facility] Rx#:[id number] Maxipime Inj 1,000 MG In NS Inj 100 ML @ 200 mls/hr IV.SIG Q12H [facility] Rx#:[id number] Vancomycin Inj 1,250 MG In NS Inj 250 ML @ 250 mls/hr IV.SIG Q12H [facility] Rx#:[id number] Oral Output: Urine Other: # Voids # Bowel Movements Narrative: Dressing intact to left LE. Neurovascular intact. Medications and Allergies Active Medications: Active Medications Acetaminophen (Tylenol) 650 mg PO Q4H PRN PRN Reason: Temp > 100.4 Hydrocodone Bitart/Acetaminophen ([place] 10/325) 1 tab PO Q4H PRN PRN Reason: PAIN 6-10 Hydrocodone Bitart/Acetaminophen ([place] 5/325) 1 tab PO Q4H PRN PRN Reason: PAIN 3-5 Al Hydroxide/Mg Hydroxide (Milk Of Magnesia Liq) 30 ml PO Q12H PRN PRN Reason: Mild Constipation Bisacodyl (Dulcolax Supp) 10 mg RECTAL DAILY PRN PRN Reason: SEVERE CONSITIPATION Cefepime HCl 1,000 mg/ Sodium (Chloride) 100 mls @ 200 mls/hr IV.SIG Q12H [facility] Last Infusion: 02/11/18 00:43 Dose: Infused Sodium Chloride (Ns Inj) 1,000 mls @ 100 mls/hr IV.CONT .Q10H [facility] Last Infusion: 02/11/18 05:52 Dose: 100 mls/hr Vancomycin HCl 1,250 mg/ (Sodium Chloride) 262.5 mls @ 250 mls/hr IV.SIG Q12H [facility] Last Infusion: 02/11/18 01:15 EST Dose: Infused Lactated Ringer's (Lr 1000 Ml Inj) 1,000 mls @ 30 mls/hr IV.SIG .Q24H [facility] Stop: 02/12/18 02:14 Last Admin: 02/11/18 06:45 Dose: 30 mls/hr Sodium Chloride (Ns Inj) 500 mls @ 30 mls/hr IV.SIG .Q10H [facility] Last Admin: 02/11/18 07:58 Dose: Not Given Lactulose (Lactulose Liq) 30 ml PO DAILY PRN PRN Reason: SEVERE CONSITIPATION Ondansetron HCl (Zofran Inj) 4 mg IV.PUSH Q6H PRN PRN Reason: NAUSEA OR VOMITING Pharmacy Profile Note (Vancomycin Consult Pharmacy) 1 each OTHER UNSCH PRN PRN Reason: Pharmacy to dose Senna/Docusate Sodium (Elsie-Colace) 1 tab PO BID [facility] Last Admin: 02/10/18 21:54 Dose: Not Given Sennosides (Senokot) 17.2 mg PO Q12H PRN PRN Reason: Moderate Constipation Sodium Chloride (Ns Flush) 2 ml IV.FLUSH BID [facility] Sodium Chloride (Ns Flush) 2 ml IV.FLUSH PRN PRN PRN Reason: FLUSH AFTER USING IV ACCESS Allergies Allergy/AdvReac Type Severity Reaction Status Date / Time No Known Allergies Allergy Verified 02/09/18 20:26 Home Medications Medication Instructions Recorded Confirmed Type aspirin 325 mg PO DAILY 02/09/18 02/09/18 History Results - Labs CBC & Chem 7: 02/10/18 09:40 02/10/18 09:40 Laboratory Results - last 24 hr 02/10/18 02/10/18 02/11/18 09:40 09:40 00:55 WBC 5.5 RBC 4.12 L Hgb 13.5 Hct 39.6 MCV 96.2 MCH 32.8 MCHC 34.1 RDW 13.9 Plt Count 223 MPV 8.4 Neut % (Auto) 60.8 Lymph % (Auto) 22.3 [place] % (Auto) 9.8 H Eos % (Auto) 6.3 H Baso % (Auto) 0.8 Neut # (Auto) 3.4 Lymph # (Auto) 1.2 [place] # (Auto) 0.5 Eos # (Auto) 0.3 Baso # (Auto) 0.0 WBC Differential . Differential Comment Auto diff final Sodium 142 Potassium 4.1 Chloride 110 H Carbon Dioxide 26.9 Anion Gap 5 BUN 14 Creatinine 1.01 Estimated GFR 75 L Random Glucose 104 Calcium 7.8 L D Total Bilirubin 0.5 AST 17 ALT 28 Alkaline Phosphatase 53 Total Protein 6.4 Albumin 3.0 L Vancomycin Trough 10.5 H Microbiology 02/09/18 22:10 Blood - Peripheral Aerobic Blood Culture - Preliminary No growth in 1 day 02/09/18 22:10 Blood - Peripheral Anaerobic Blood Culture - Preliminary No growth in 1 day 02/09/18 22:15 Blood - Peripheral Aerobic Blood Culture - Preliminary No growth in 1 day 02/09/18 22:15 Blood - Peripheral Anaerobic Blood Culture - Preliminary No growth in 1 day Assessment and Plan - Plan 62-year-old male status post Achilles avulsion with left calcaneal fracture secondary to lawnmower, admitted 01/17 for injury and underwent debridement and irrigation with wound VAC placement, status post subsequent debridement and irrigation with Achilles tendon repair Patient examined and evaluated with all questions answered To the OR today for left posterior ankle debridement irrigation with wound VAC placement Anticipate subsequent surgery with graft placement on this admission Consent signed and reviewed Patient has remained N.p.o. after midnight Alternatives risks benefits and complications associated with surgery discussed with patient Continue IV antibiotics Will obtain OR cultures
[2018-02-11 08:34] LABS: Hematocrit 38.5 % (39.0-51.0); Hemoglobin 13.3 gm/dL (13.0-17.0); Mean Corpuscular HGB Conc 34.5 % (32.0-36.0); Mean Corpuscular Hemoglobin 33.2 pg (27.0-34.0); Mean Corpuscular Volume 96.4 fL (80.0-100.0); Mean Platelet Volume 8.5 fL (7.0-11.0); Platelet Count 219 th/mm3 (150-450); Red Blood Count 3.99 mil/mm3 (4.50-5.90); Red Cell Distribution Width 13.6 % (11.6-17.2); White Blood Count 6.3 th/mm3 (4.0-11.0)
[2018-02-11 08:57] LABS: Calcium 8.2 mg/dL (8.5-10.1); Carbon Dioxide 26.4 meq/L (21.0-32.0)
[2018-02-11] MEDS ORDERED: Misc Info for Pharmacy OTHER STA (09:43)
--- NOTE | 2018-02-11 09:43 | P.PCN ---
Date of procedure: 02/11/18 Pre-op diagnosis: Left posterior ankle/Achilles open wound Post-op diagnosis: same Procedure: Left posterior ankle/Achilles debridement and irrigation with wound VAC placement Anesthesia: IESHA Surgeon: Elle Palafox Estimated blood loss (mL): 10 Pathology: other (Soft tissue left foot for microbiology) Condition: stable Disposition: PACU (Vital signs stable neurovascular status intact to the left lower extremity)
[2018-02-11] MEDS ORDERED: fentaNYL Citrate Inj 100 MCG/2 ML Ampul ONE ×2 (10:01)
[2018-02-11] MEDS: Senna/Docusate Sodium 8.6/50 MG Tablet PO SCH ×2 (11:11→20:22)
[2018-02-11] MEDS: Sodium Chloride 0.9% 2 ML Flush BID IV.FLUSH SCH ×2 (11:13→20:21)
--- NOTE | 2018-02-11 12:46 | MP ---
cc: Elle Palafox DPM DATE OF OPERATION: 02/11/2018 SURGEON: Elle Palafox DPM MUD JACK OPERATOR: None. PREOPERATIVE DIAGNOSIS: Left posterior ankle/Achilles wound, status post Achilles reattachment secondary to a lawnmower injury which involved Achilles and fractured calcaneus. POSTOPERATIVE DIAGNOSIS: Left posterior ankle/Achilles wound, status post Achilles reattachment secondary to a lawnmower injury which involved Achilles and fractured calcaneus. PROCEDURE PERFORMED: Left posterior Achilles/ankle debridement and irrigation with wound vacuum-assisted closure placement. ANESTHESIA: General. HEMOSTASIS: None. ESTIMATED BLOOD LOSS: 10 mL. MATERIALS: 3-0 Prolene and 3-0 Monocryl. INJECTABLES: 20 mL of 0.5% Marcaine plain infiltrated about the left foot. COMPLICATIONS: None. INDICATIONS FOR PROCEDURE: The patient is a 62-year-old male who presented to the emergency department on 01/17/2018 for an open calcaneal fracture with Achilles tendon rupture subsequent to a lawnmower injury. The patient was taken to the OR that day for debridement and irrigation with wound VAC placement. Following this, the patient was subsequently taken back to the OR for additional debridement and irrigation with reattachment of Achilles tendon. The patient had remained in a posterior splint; however, states he continues to mow his lawn and smoke. He has not stayed off of it or elevated it as discussed with the patient. He presented to the office with a posterior Achilles/ankle wound with serous drainage. The patient was admitted to the hospital for IV antibiotics and discussed debridement and irrigation with the patient with possible graft placement following debridement and irrigation. He understands all risks, alternatives, benefits and complications associated with the procedure. He would like to proceed with the procedure. DESCRIPTION OF PROCEDURE: The patient was brought to the operating room. General anesthesia was then induced. The patient was placed in the prone position with all bony prominences padded off. The left foot was prepped and draped in the usual aseptic sterile manner. Attention was directed to the left foot, where a full-thickness excisional debridement with a 15 blade was performed through subcutaneous tissue and tendon, removing all nonviable and necrotic tissue. Three liters of irrigation was performed with gentamicin. Versajet was utilized to debride any necrotic devitalized tissue. Proximal tissue was flapped and advanced for soft tissue coverage. This was reapproximated with 3-0 Monocryl subcutaneously and 3-0 Prolene to skin. Wound VAC was then applied to remaining open ulceration. Achilles tendon was noted to be securely attached to the calcaneus. There was noted to be a plantar flexion of the foot on calf squeeze. Foot was dressed with cast padding, Bon and heel was offloaded. Wound VAC functioning at 125 mmHg. He is to remain nonweightbearing. He will stay in-house for IV antibiotics. We will monitor wound and possible graft placement to site once granulation tissue present. ELLA Serrato , 09:56 AM , 10:06 AM
--- NOTE | 2018-02-11 15:38 | P.PN ---
Subjective Interval history: Follow-up for left foot Achilles tendon rupture, S/P left posterior Achilles/ ankle debridement and irrigation with wound VAC: Patient seen and examined. Sleepy, wakes to voice. Complains of pain, a 4. No fever. No chest pain, shortness of breath, no nausea, no vomiting, no diarrhea. Physical Exam Vital signs: Vital Signs 02/10/18 20:00 02/11/18 00:00 02/11/18 09:41 Temperature 97.5 F L 97.9 F 96.6 F L Pulse Rate 86 72 93 H Respiratory Rate 18 18 20 Blood Pressure 119/56 L 120/64 157/81 H Pulse Oximetry 95 95 96 02/11/18 10:00 02/11/18 10:12 02/11/18 10:15 Temperature Pulse Rate 83 86 Respiratory Rate 17 14 Blood Pressure 135/70 118/69 Pulse Oximetry 95 96 95 02/11/18 10:30 02/11/18 12:00 Temperature 97.8 F 97.9 F Pulse Rate 69 84 Respiratory Rate 15 18 Blood Pressure 118/67 122/71 Pulse Oximetry 94 L 94 L Intake & Output 02/10/18 02/11/18 02/11/18 19:59 06:59 18:59 Intake Total 1000 / 1000 Output Total Balance 990 / 990 Weight Intake: IV NS Inj 1,000 ML @ 100 mls/hr IV .CONT .Q10H [facility] Rx#:[id number] Maxipime Inj 1,000 MG In NS Inj 100 ML @ 200 mls/hr IV.SIG Q12H [facility] Rx#:[id number] Vancomycin Inj 1,250 MG In NS Inj 250 ML @ 250 mls/hr IV.SIG Q12H [facility] Rx#:[id number] Oral Anesthesia Amount 1000 / 1000 Output: Urine Estimated Blood Loss Other: Mode Setting Left Ankle Continuous # Voids # Bowel Movements Narrative: GENERAL: Pleasant middle-aged white male in no acute distress. SKIN: Focused skin assessment warm and dry. HEENT: PERRLA, EOMI. No scleral icterus or conjunctival pallor. No lid lag or facial droop. CARDIOVASCULAR: Regular rate and rhythm. No obvious murmurs to auscultation. No chest tenderness to palpation. RESPIRATORY: No obvious rhonchi or wheezing. Clear to auscultation. Breath sounds equal bilaterally. GASTROINTESTINAL: Abdomen soft, non-tender, nondistended. BS normal. MUSCULOSKELETAL: Extremities without clubbing, cyanosis, or edema. No obvious deformities. Left foot with dressing in place, has a wound VAC. Intact sensation to toes. Skin warm and dry, capillary refill less than 3 seconds. NEUROLOGICAL: Awake, alert and oriented x4. No focal neurologic deficits. Moving both upper and lower extremities spontaneously. PSYCHIATRIC: Appropriate mood and affect. Insight and judgment normal. Results - Labs CBC & Chem 7: 02/11/18 06:49 02/11/18 06:49 Laboratory Results - last 24 hr 02/11/18 02/11/18 02/11/18 00:55 06:49 06:49 WBC 6.3 RBC 3.99 L Hgb 13.3 Hct 38.5 L MCV 96.4 MCH 33.2 MCHC 34.5 RDW 13.6 Plt Count 219 MPV 8.5 Sodium 144 Potassium 4.0 Chloride 110 H Carbon Dioxide 26.4 Anion Gap 8 BUN 14 Creatinine 1.13 Estimated GFR 66 L Random Glucose 87 Calcium 8.2 L Vancomycin Trough 10.5 H Microbiology 02/09/18 22:10 Blood - Peripheral Aerobic Blood Culture - Preliminary No growth in 2 days 02/09/18 22:10 Blood - Peripheral Anaerobic Blood Culture - Preliminary No growth in 2 days 02/09/18 22:15 Blood - Peripheral Aerobic Blood Culture - Preliminary No growth in 2 days 02/09/18 22:15 Blood - Peripheral Anaerobic Blood Culture - Preliminary No growth in 2 days - Procedures S/P left posterior Achilles/ankle debridement and irrigation with wound VAC Assessment and Plan - Assessment (1) Post op infection Code(s): T81.40XA - Infection following a procedure, unspecified, initial encounter Status: Acute (2) Tobacco abuse Code(s): Z72.0 - Tobacco use Status: Acute - Plan This is a 62-year-old male with a PMH of Left Foot Injury and Tobacco Abuse who was sent to the ER for admission by Dr. Palafox. 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 Stockton, d/c'd on Levaquin/Flagyl. Was seen in office approx 10 days ago and had sutures removed , seen again yesterday and noted to have non-healing wound w/ infection, sent to ER by Dr. Palafox for IV Abx and admission for surgical intervention. Post Op Wound Infection: Left Foot, s/p left Achilles tendon rupture/ laceration w/ I&D and antibiotic bead placement on 01/17/18 Patient presented with right foot wound with infection S/P left posterior Achilles/ankle debridement and irrigation with wound VAC appreciate podiatry input, D/W Dr. Palafox-poss graft placement later in the week -Continue with antibiotics, vancomycin and cefepime. Continue to follow cultures -Pain management Tobacco Abuse -Pt counselled -NicoDerm prn if needed. DVT Prophylaxis: SCD/Teds Labs in am PT eval Code Status: Full code Discussed Condition With: RN, pt, CM Discharge Planning: Not ready for dc, possibly end of week. Will need another surgical procedure
[2018-02-12] MEDS: Vancomycin Inj 1,250 MG in Sodium Chlor 0.9% Inj 250 ML IV.SIG SCH ×2 (01:17→12:32)
[2018-02-12] MEDS: Sod Chloride 0.9% Inj 1,000 ML IV.CONT SCH (01:45)
[2018-02-12 05:46] LABS: Hematocrit 36.8 % (39.0-51.0); Hemoglobin 12.3 gm/dL (13.0-17.0); Mean Corpuscular HGB Conc 33.6 % (32.0-36.0); Mean Corpuscular Hemoglobin 32.1 pg (27.0-34.0); Mean Corpuscular Volume 95.8 fL (80.0-100.0); Mean Platelet Volume 8.5 fL (7.0-11.0); Platelet Count 216 th/mm3 (150-450); Red Blood Count 3.84 mil/mm3 (4.50-5.90); Red Cell Distribution Width 13.7 % (11.6-17.2); White Blood Count 12.1 th/mm3 (4.0-11.0)
[2018-02-12 06:16] LABS: Carbon Dioxide 24.2 meq/L (21.0-32.0); Potassium 3.9 meq/L (3.5-5.1)
[2018-02-12] MEDS: Sodium Chloride 0.9% 2 ML Flush BID IV.FLUSH SCH ×2 (08:20→21:03)
[2018-02-12] MEDS: Senna/Docusate Sodium 8.6/50 MG Tablet PO SCH ×2 (08:21→21:04)
--- NOTE | 2018-02-12 09:03 | P.PN ---
Subjective Interval history: Follow-up for left foot Achilles tendon rupture, S/P left posterior Achilles/ ankle debridement and irrigation with wound VAC: Patient seen and examined. Awake and alert, has no complaints. Intact sensation to left foot. No fever. Physical Exam Vital signs: Vital Signs 02/11/18 09:41 02/11/18 10:00 02/11/18 10:12 Temperature 96.6 F L Pulse Rate 93 H 83 Respiratory Rate 20 17 Blood Pressure 157/81 H 135/70 Pulse Oximetry 96 95 96 02/11/18 10:15 02/11/18 10:30 02/11/18 12:00 Temperature 97.8 F 97.9 F Pulse Rate 86 69 84 Respiratory Rate 14 15 18 Blood Pressure 118/69 118/67 122/71 Pulse Oximetry 95 94 L 94 L 02/11/18 16:00 02/11/18 20:00 02/12/18 00:00 Temperature 97.8 F 98.8 F 98.2 F Pulse Rate 106 H 103 H 95 H Respiratory Rate 18 18 17 Blood Pressure 131/60 103/55 L 109/55 L Pulse Oximetry 94 L 92 L 92 L 02/12/18 04:00 Temperature 97.9 F Pulse Rate 92 H Respiratory Rate 17 Blood Pressure 110/57 L Pulse Oximetry 94 L Intake & Output 02/11/18 02/12/18 02/12/18 18:59 06:59 18:59 Intake Total 2212.5 / 2212.5 2774.5 / 2774.5 117 / 117 Output Total 1385 / 1385 1450 / 1450 Balance 827.5 / 827.5 1324.5 / 1324.5 117 / 117 Weight 91.4 kg Intake: IV 362.5 / 362.5 1814.5 / 1814.5 117 / 117 NS Inj 1,000 ML @ 100 mls/hr IV 1452 / 1452 117 / 117 .CONT .Q10H [facility] Rx#:[id number] Maxipime Inj 1,000 MG In NS Inj 100 / 100 100 / 100 100 ML @ 200 mls/hr IV.SIG Q12H [facility] Rx#:[id number] Vancomycin Inj 1,250 MG In NS 262.5 / 262.5 262.5 / 262.5 Inj 250 ML @ 250 mls/hr IV.SIG Q12H [facility] Rx#:[id number] Oral 960 / 960 Anesthesia Amount 1000 / 1000 Other 850 / 850 Output: Urine 1375 / 1375 1450 / 1450 Estimated Blood Loss Other: Mode Setting Left Ankle Continuous Narrative: GENERAL: Pleasant middle-aged white male in no acute distress. SKIN: Focused skin assessment warm and dry. HEENT: PERRLA, EOMI. No scleral icterus or conjunctival pallor. No lid lag or facial droop. CARDIOVASCULAR: Regular rate and rhythm. No obvious murmurs to auscultation. No chest tenderness to palpation. RESPIRATORY: No obvious rhonchi or wheezing. Clear to auscultation. Breath sounds equal bilaterally. GASTROINTESTINAL: Abdomen soft, non-tender, nondistended. BS normal. MUSCULOSKELETAL: Extremities without clubbing, cyanosis, or edema. No obvious deformities. Left foot with dressing in place, has a wound VAC. Intact sensation to toes. Skin warm and dry, capillary refill less than 3 seconds. NEUROLOGICAL: Awake, alert and oriented x4. No focal neurologic deficits. Moving both upper and lower extremities spontaneously. PSYCHIATRIC: Appropriate mood and affect. Insight and judgment normal. Results - Labs CBC & Chem 7: 02/12/18 04:40 02/12/18 04:40 Laboratory Results - last 24 hr 02/12/18 02/12/18 04:40 04:40 WBC 12.1 H D RBC 3.84 L Hgb 12.3 L Hct 36.8 L MCV 95.8 MCH 32.1 MCHC 33.6 RDW 13.7 Plt Count 216 MPV 8.5 Sodium 143 Potassium 3.9 Chloride 109 H Carbon Dioxide 24.2 Anion Gap 10 BUN 12 Creatinine 1.10 Estimated GFR 68 L Random Glucose 128 H Calcium 8.0 L Microbiology 02/09/18 22:10 Blood - Peripheral Aerobic Blood Culture - Preliminary No growth in 2 days 02/09/18 22:10 Blood - Peripheral Anaerobic Blood Culture - Preliminary No growth in 2 days 02/09/18 22:15 Blood - Peripheral Aerobic Blood Culture - Preliminary No growth in 2 days 02/09/18 22:15 Blood - Peripheral Anaerobic Blood Culture - Preliminary No growth in 2 days - Procedures S/P left posterior Achilles/ankle debridement and irrigation with wound VAC Assessment and Plan - Assessment (1) Post op infection Code(s): T81.40XA - Infection following a procedure, unspecified, initial encounter Status: Acute (2) Tobacco abuse Code(s): Z72.0 - Tobacco use Status: Acute - Plan This is a 62-year-old male with a PMH of Left Foot Injury and Tobacco Abuse who was sent to the ER for admission by Dr. Palafox. 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 Stockton, d/c'd on Levaquin/Flagyl. Was seen in office approx 10 days ago and had sutures removed , seen again yesterday and noted to have non-healing wound w/ infection, sent to ER by Dr. Palafox for IV Abx and admission for surgical intervention. Post Op Wound Infection: Left Foot, s/p left Achilles tendon rupture/ laceration w/ I&D and antibiotic bead placement on 01/17/18 Patient presented with right foot wound with infection S/P left posterior Achilles/ankle debridement and irrigation with wound VAC appreciate podiatry input, D/W Dr. Palafox-poss graft placement later in the week -Continue with antibiotics, vancomycin and cefepime. Continue to follow cultures -Pain management Leukocytosis -follow CBC Tobacco Abuse -Pt counselled -NicoDerm prn if needed. DVT Prophylaxis: SCD/Teds Labs in am Code Status: Full code Discussed Condition With: RN, pt, CM Discharge Planning: Not ready for dc, possibly end of week. Will need another surgical procedure on Mon
--- NOTE | 2018-02-12 16:36 | P.PNPOD ---
Review of Systems All other systems reviewed negative except as stated in HPI Physical Exam Vital signs: Vital Signs 02/11/18 20:00 02/12/18 00:00 02/12/18 04:00 Temperature 98.8 F 98.2 F 97.9 F Pulse Rate 103 H 95 H 92 H Respiratory Rate 18 17 17 Blood Pressure 103/55 L 109/55 L 110/57 L Pulse Oximetry 92 L 92 L 94 L 02/12/18 08:00 02/12/18 12:00 Temperature 97.8 F 97.8 F Pulse Rate 81 84 Respiratory Rate 16 16 Blood Pressure 105/59 L 114/62 Pulse Oximetry 93 L 93 L Intake & Output 02/11/18 02/12/18 02/12/18 18:59 06:59 18:59 Intake Total 2212.5 / 2212.5 2774.5 / 2774.5 554.5 / 554.5 Output Total 1385 / 1385 1450 / 1450 Balance 827.5 / 827.5 1324.5 / 1324.5 554.5 / 554.5 Weight 91.4 kg Intake: IV 362.5 / 362.5 1814.5 / 1814.5 554.5 / 554.5 NS Inj 1,000 ML @ 100 mls/hr IV 1452 / 1452 192 / 192 .CONT .Q10H [facility] Rx#:[id number] Maxipime Inj 1,000 MG In NS Inj 100 / 100 100 / 100 100 / 100 100 ML @ 200 mls/hr IV.SIG Q12H [facility] Rx#:[id number] Vancomycin Inj 1,250 MG In NS 262.5 / 262.5 262.5 / 262.5 262.5 / 262.5 Inj 250 ML @ 250 mls/hr IV.SIG Q12H [facility] Rx#:[id number] Oral 960 / 960 Anesthesia Amount 1000 / 1000 Other 850 / 850 Output: Urine 1375 / 1375 1450 / 1450 Estimated Blood Loss 10 10 Other: Mode Setting Left Ankle Continuous Medications and Allergies Active Medications: Active Medications Acetaminophen (Tylenol) 650 mg PO Q4H PRN PRN Reason: Temp > 100.4 Hydrocodone Bitart/Acetaminophen ([place] 10/325) 1 tab PO Q4H PRN PRN Reason: PAIN 6-10 Hydrocodone Bitart/Acetaminophen ([place] 5/325) 1 tab PO Q4H PRN PRN Reason: PAIN 3-5 Last Admin: 02/11/18 11:11 Dose: 1 tab Al Hydroxide/Mg Hydroxide (Milk Of Magnesia Liq) 30 ml PO Q12H PRN PRN Reason: Mild Constipation Bisacodyl (Dulcolax Supp) 10 mg RECTAL DAILY PRN PRN Reason: SEVERE CONSITIPATION Cefepime HCl 1,000 mg/ Sodium (Chloride) 100 mls @ 200 mls/hr IV.SIG Q12H [facility] Last Infusion: 02/12/18 12:00 Dose: Infused Vancomycin HCl 1,250 mg/ (Sodium Chloride) 262.5 mls @ 250 mls/hr IV.SIG Q12H [facility] Last Infusion: 02/12/18 13:37 Dose: Infused Sodium Chloride (Ns Inj) 500 mls @ 30 mls/hr IV.SIG .Q10H [facility] Last Admin: 02/11/18 07:58 Dose: Not Given Lactulose (Lactulose Liq) 30 ml PO DAILY PRN PRN Reason: SEVERE CONSITIPATION Miscellaneous Information ([facility] Ordered Lab Info) 0 each OTHER ONCE ONE Stop: 02/13/18 00:46 Ondansetron HCl (Zofran Inj) 4 mg IV.PUSH Q6H PRN PRN Reason: NAUSEA OR VOMITING Pharmacy Profile Note (Vancomycin Consult Pharmacy) 1 each OTHER UNSCH PRN PRN Reason: Pharmacy to dose Senna/Docusate Sodium (Elsie-Colace) 1 tab PO BID [facility] Last Admin: 02/12/18 08:21 Dose: Not Given Sennosides (Senokot) 17.2 mg PO Q12H PRN PRN Reason: Moderate Constipation Sodium Chloride (Ns Flush) 2 ml IV.FLUSH BID [facility] Last Admin: 02/12/18 08:20 Dose: 2 ml Sodium Chloride (Ns Flush) 2 ml IV.FLUSH PRN PRN PRN Reason: FLUSH AFTER USING IV ACCESS Allergies Allergy/AdvReac Type Severity Reaction Status Date / Time No Known Allergies Allergy Verified 02/09/18 20:26 Home Medications Medication Instructions Recorded Confirmed Type aspirin 325 mg PO DAILY 02/09/18 02/09/18 History Results - Labs CBC & Chem 7: 02/12/18 04:40 02/12/18 04:40 Laboratory Results - last 24 hr 02/12/18 02/12/18 04:40 04:40 WBC 12.1 H D RBC 3.84 L Hgb 12.3 L Hct 36.8 L MCV 95.8 MCH 32.1 MCHC 33.6 RDW 13.7 Plt Count 216 MPV 8.5 Sodium 143 Potassium 3.9 Chloride 109 H Carbon Dioxide 24.2 Anion Gap 10 BUN 12 Creatinine 1.10 Estimated GFR 68 L Random Glucose 128 H Calcium 8.0 L Microbiology 02/11/18 09:54 Tissue - Foot Gram Stain - Final 02/11/18 09:54 Tissue - Foot Wound Culture - Preliminary No growth in 24 hours 02/09/18 22:10 Blood - Peripheral Aerobic Blood Culture - Preliminary No growth in 3 days 02/09/18 22:10 Blood - Peripheral Anaerobic Blood Culture - Preliminary No growth in 3 days 02/09/18 22:15 Blood - Peripheral Aerobic Blood Culture - Preliminary No growth in 3 days 02/09/18 22:15 Blood - Peripheral Anaerobic Blood Culture - Preliminary No growth in 3 days 02/11/18 09:54 Tissue - Foot Fungal Smear - Final No fungal elements seen - Procedures S/P left posterior Achilles/ankle debridement and irrigation with wound VAC Assessment and Plan - Assessment (1) Laceration of left ankle with tendon involvement Code(s): S91.012A - Laceration without foreign body, left ankle, initial encounter; S96.922A - Laceration of unspecified muscle and tendon at ankle and foot level, left foot, initial encounter Status: Acute (2) Post op infection Code(s): T81.40XA - Infection following a procedure, unspecified, initial encounter Status: Acute - Plan s/p Left posterior ankle/Achilles debridement and irrigation with wound VAC placement 02/11/18 Dr Palafox. Continue wound vac L heel and brace to offload the area. Plan to remove vac dressing tomorrow and look at wound to determine if wound vac needed for longer period of time before grafting or if patient can undergo further surgical debridement with graft placement this week. Nonweightbearing left lower extremity.
[2018-02-13] MEDS: Vancomycin Inj 1,250 MG in Sodium Chlor 0.9% Inj 250 ML IV.SIG SCH ×2 (00:25→13:08)
[2018-02-13] MEDS ORDERED: Pharmacy Ordered Lab Info OTHER ONE (00:45)
[2018-02-13 06:29] LABS: Hematocrit 36.4 % (39.0-51.0); Hemoglobin 12.2 gm/dL (13.0-17.0); Mean Corpuscular HGB Conc 33.6 % (32.0-36.0); Mean Corpuscular Hemoglobin 32.4 pg (27.0-34.0); Mean Corpuscular Volume 96.4 fL (80.0-100.0); Mean Platelet Volume 8.4 fL (7.0-11.0); Platelet Count 199 th/mm3 (150-450); Red Blood Count 3.77 mil/mm3 (4.50-5.90); Red Cell Distribution Width 13.8 % (11.6-17.2); White Blood Count 7.4 th/mm3 (4.0-11.0)
[2018-02-13] MEDS: Sodium Chloride 0.9% 2 ML Flush BID IV.FLUSH SCH ×2 (10:43→21:22)
[2018-02-13] MEDS: Senna/Docusate Sodium 8.6/50 MG Tablet PO SCH ×2 (10:43→21:21)
--- NOTE | 2018-02-13 13:40 | P.PN ---
Subjective Interval history: Follow-up Post Op Wound Infection: Left Foot, s/p left Achilles tendon rupture/ laceration February 13, 2018-patient seen and examined, no complaint of left foot pain. Afebrile. Physical Exam Vital signs: Vital Signs 02/12/18 16:00 02/12/18 20:00 02/13/18 00:00 Temperature 98.1 F 98.1 F 97.8 F Pulse Rate 83 87 70 Respiratory Rate 16 18 18 Blood Pressure 110/66 137/64 121/63 Pulse Oximetry 97 96 94 L 02/13/18 04:00 02/13/18 08:00 Temperature 98.4 F 97.8 F Pulse Rate 61 72 Respiratory Rate 18 16 Blood Pressure 114/66 124/71 Pulse Oximetry 92 L 96 Intake & Output 02/12/18 02/13/18 02/13/18 18:59 06:59 18:59 Intake Total 934.5 / 934.5 855 / 855 100 / 100 Output Total 1800 / 1800 1949 / 1950 Balance -865.5 / -865.5 -1095 / -1095 100 / 100 Intake: IV 554.5 / 554.5 375 / 375 100 / 100 NS Inj 1,000 ML @ 100 mls/hr IV 192 / 192 .CONT .Q10H [facility] Rx#:[id number] Maxipime Inj 1,000 MG In NS Inj 100 / 100 100 / 100 100 / 100 100 ML @ 200 mls/hr IV.SIG Q12H [facility] Rx#:[id number] Vancomycin Inj 1,250 MG In NS 262.5 / 262.5 275 / 275 Inj 250 ML @ 250 mls/hr IV.SIG Q12H [facility]ERT Rx#:[id number] Oral 380 / 380 480 / 480 Output: Urine 1800 / 1800 1949 / 1949 Other: # Bowel Movements 0 Narrative: GENERAL: NAD SKIN: Focused skin assessment warm and dry. HEENT: PERRLA, EOMI. No scleral icterus or conjunctival pallor. No lid lag or facial droop. CARDIOVASCULAR: Regular rate and rhythm. No obvious murmurs to auscultation. No chest tenderness to palpation. RESPIRATORY: No obvious rhonchi or wheezing. Clear to auscultation. Breath sounds equal bilaterally. GASTROINTESTINAL: Abdomen soft, non-tender, nondistended. BS normal. MUSCULOSKELETAL: Extremities without clubbing, cyanosis, or edema. No obvious deformities. Left foot with dressing in place, has a wound VAC. Intact sensation to toes. Skin warm and dry, capillary refill less than 3 seconds. NEUROLOGICAL: Awake, alert and oriented x4. No focal neurologic deficits. Moving both upper and lower extremities spontaneously. PSYCHIATRIC: Appropriate mood and affect. Insight and judgment normal. Results - Labs CBC & Chem 7: 02/13/18 05:05 02/13/18 05:05 Laboratory Results - last 24 hr 02/13/18 02/13/18 02/13/18 00:25 05:05 05:05 WBC 7.4 RBC 3.77 L Hgb 12.2 L Hct 36.4 L MCV 96.4 MCH 32.4 MCHC 33.6 RDW 13.8 Plt Count 199 MPV 8.4 Creatinine 0.97 Estimated GFR 78 L Vancomycin Trough 14.6 H Microbiology 02/09/18 22:10 Blood - Peripheral Aerobic Blood Culture - Preliminary No growth in 4 days 02/09/18 22:10 Blood - Peripheral Anaerobic Blood Culture - Preliminary No growth in 4 days 02/09/18 22:15 Blood - Peripheral Aerobic Blood Culture - Preliminary No growth in 4 days 02/09/18 22:15 Blood - Peripheral Anaerobic Blood Culture - Preliminary No growth in 4 days 02/11/18 09:54 Tissue - Foot Gram Stain - Final 02/11/18 09:54 Tissue - Foot Wound Culture - Preliminary 02/11/18 09:54 Tissue - Foot Fungal Smear - Final No fungal elements seen - Procedures S/P left posterior Achilles/ankle debridement and irrigation with wound VAC Assessment and Plan - Assessment (1) Post op infection Code(s): T81.40XA - Infection following a procedure, unspecified, initial encounter Status: Acute (2) Tobacco abuse Code(s): Z72.0 - Tobacco use Status: Acute - Plan 62-year-old man with Post Op Wound Infection: Left Foot, s/p left Achilles tendon rupture/ laceration w/ I&D and antibiotic bead placement on 01/17/18 -S/P left posterior Achilles/ankle debridement and irrigation with wound VAC appreciate podiatry input -Continue with antibiotics, vancomycin and cefepime. Will consult infectious disease -Pain management Tobacco Abuse -Pt counselled -NicoDerm prn if needed. DVT Prophylaxis: SCD/Teds
--- NOTE | 2018-02-13 17:52 | P.PNPOD ---
Review of Systems All other systems reviewed negative except as stated in HPI Physical Exam Vital signs: Vital Signs 02/12/18 20:00 02/13/18 00:00 02/13/18 04:00 Temperature 98.1 F 97.8 F 98.4 F Pulse Rate 87 70 61 Respiratory Rate 18 18 18 Blood Pressure 137/64 121/63 114/66 Pulse Oximetry 96 94 L 92 L 02/13/18 08:00 02/13/18 12:00 Temperature 97.8 F 98.2 F Pulse Rate 72 79 Respiratory Rate 16 16 Blood Pressure 124/71 112/62 Pulse Oximetry 96 97 Intake & Output 02/12/18 02/13/18 02/13/18 18:59 06:59 18:59 Intake Total 934.5 / 934.5 855 / 855 362.5 / 362.5 Output Total 1800 / 1800 1949 Balance -865.5 / -865.5 -1095 / -1095 362.5 / 362.5 Intake: IV 554.5 / 554.5 375 / 375 362.5 / 362.5 NS Inj 1,000 ML @ 100 mls/hr IV 192 / 192 .CONT .Q10H [facility] Rx#:[id number] Maxipime Inj 1,000 MG In NS Inj 100 / 100 100 / 100 100 / 100 100 ML @ 200 mls/hr IV.SIG Q12H [facility] Rx#:[id number] Vancomycin Inj 1,250 MG In NS 262.5 / 262.5 275 / 275 262.5 / 262.5 Inj 250 ML @ 250 mls/hr IV.SIG Q12H [facility] Rx#:[id number] Oral 380 / 380 480 / 480 Output: Urine 1800 / 1800 1949 / 1949 Other: # Bowel Movements 0 Narrative: Left posterior heel with surgical wound down to level of distal achilles with granulation tissue medially and laterally to achilles area and small islands of granular tissue forming over tendon. No necrotic tissue present. No foul odor. Wound margins healthy in appearance. Approximately 4cm x 3.5cm x 0.5cm depth. Minimal pain present. Medications and Allergies Active Medications: Active Medications Acetaminophen (Tylenol) 650 mg PO Q4H PRN PRN Reason: Temp > 100.4 Hydrocodone Bitart/Acetaminophen ([place] 10/325) 1 tab PO Q4H PRN PRN Reason: PAIN 6-10 Hydrocodone Bitart/Acetaminophen ([place] 5/325) 1 tab PO Q4H PRN PRN Reason: PAIN 3-5 Last Admin: 02/11/18 11:11 Dose: 1 tab Al Hydroxide/Mg Hydroxide (Milk Of Magnesia Liq) 30 ml PO Q12H PRN PRN Reason: Mild Constipation Bisacodyl (Dulcolax Supp) 10 mg RECTAL DAILY PRN PRN Reason: SEVERE CONSITIPATION Cefepime HCl 1,000 mg/ Sodium (Chloride) 100 mls @ 200 mls/hr IV.SIG Q12H [facility] Last Infusion: 02/13/18 12:45 Dose: Infused Vancomycin HCl 1,250 mg/ (Sodium Chloride) 262.5 mls @ 250 mls/hr IV.SIG Q12H [facility] Last Infusion: 02/13/18 14:15 Dose: Infused Sodium Chloride (Ns Inj) 500 mls @ 30 mls/hr IV.SIG .Q10H [facility] Last Admin: 02/11/18 07:58 Dose: Not Given Lactulose (Lactulose Liq) 30 ml PO DAILY PRN PRN Reason: SEVERE CONSITIPATION Miscellaneous Information ([facility] Ordered Lab Info) 0 each OTHER ONCE ONE Stop: 02/18/18 12:46 Ondansetron HCl (Zofran Inj) 4 mg IV.PUSH Q6H PRN PRN Reason: NAUSEA OR VOMITING Pharmacy Profile Note (Vancomycin Consult Pharmacy) 1 each OTHER UNSCH PRN PRN Reason: Pharmacy to dose Senna/Docusate Sodium (Elsie-Colace) 1 tab PO BID [facility] Last Admin: 02/13/18 10:43 Dose: Not Given Sennosides (Senokot) 17.2 mg PO Q12H PRN PRN Reason: Moderate Constipation Sodium Chloride (Ns Flush) 2 ml IV.FLUSH BID [facility] Last Admin: 02/13/18 10:43 Dose: 2 ml Sodium Chloride (Ns Flush) 2 ml IV.FLUSH PRN PRN PRN Reason: FLUSH AFTER USING IV ACCESS Allergies Allergy/AdvReac Type Severity Reaction Status Date / Time No Known Allergies Allergy Verified 02/09/18 20:26 Home Medications Medication Instructions Recorded Confirmed Type aspirin 325 mg PO DAILY 02/09/18 02/09/18 History Results - Labs CBC & Chem 7: 02/13/18 05:05 02/13/18 05:05 Laboratory Results - last 24 hr 02/13/18 02/13/18 02/13/18 00:25 05:05 05:05 WBC 7.4 RBC 3.77 L Hgb 12.2 L Hct 36.4 L MCV 96.4 MCH 32.4 MCHC 33.6 RDW 13.8 Plt Count 199 MPV 8.4 Creatinine 0.97 Estimated GFR 78 L Vancomycin Trough 14.6 H Microbiology 02/09/18 22:10 Blood - Peripheral Aerobic Blood Culture - Preliminary No growth in 4 days 02/09/18 22:10 Blood - Peripheral Anaerobic Blood Culture - Preliminary No growth in 4 days 02/09/18 22:15 Blood - Peripheral Aerobic Blood Culture - Preliminary No growth in 4 days 02/09/18 22:15 Blood - Peripheral Anaerobic Blood Culture - Preliminary No growth in 4 days 02/11/18 09:54 Tissue - Foot Gram Stain - Final 02/11/18 09:54 Tissue - Foot Wound Culture - Preliminary - Procedures S/P left posterior Achilles/ankle debridement and irrigation with wound VAC Dr Palafox Assessment and Plan - Assessment (1) Laceration of left ankle with tendon involvement Code(s): S91.012A - Laceration without foreign body, left ankle, initial encounter; S96.922A - Laceration of unspecified muscle and tendon at ankle and foot level, left foot, initial encounter Status: Acute (2) Post op infection Code(s): T81.40XA - Infection following a procedure, unspecified, initial encounter Status: Acute - Plan s/p Left posterior ankle/Achilles debridement and irrigation with wound VAC placement 02/11/18 Dr Palafox. Continue wound vac L heel and brace to offload the area. Patient clear for discharge from podiatry when home wound vac set up with monday /monday/monday dressing changes with adaptic to tendon area, small granufoam vac, setting at 125mmHm medium continuous. Dr Palafox to fax orders over for vac tomorrow for discharge. She will evaluate in her clinic in 1 week to determine when ready for grafting as outpatient procedure. Strict nonweightbearing left lower extremity.
[2018-02-14] MEDS: Vancomycin Inj 1,250 MG in Sodium Chlor 0.9% Inj 250 ML IV.SIG SCH ×2 (01:04→13:10)
[2018-02-14] MEDS: Senna/Docusate Sodium 8.6/50 MG Tablet PO SCH ×2 (08:48→23:19)
[2018-02-14] MEDS: Sodium Chloride 0.9% 2 ML Flush BID IV.FLUSH SCH ×2 (08:49→23:19)
--- NOTE | 2018-02-14 09:48 | P.PN ---
Subjective Interval history: Follow-up Post Op Wound Infection: Left Foot, s/p left Achilles tendon rupture/ laceration February 13, 2018-patient seen and examined, no complaint of left foot pain. Afebrile. February 14, 2018-patient seen and examined .stable. No complaints. by the bedside Physical Exam Vital signs: Vital Signs 02/13/18 12:00 02/13/18 16:00 02/13/18 20:00 Temperature 98.2 F 98.2 F 98.4 F Pulse Rate 79 79 73 Respiratory Rate 16 16 20 Blood Pressure 112/62 131/63 127/67 Pulse Oximetry 97 96 94 L 02/14/18 00:00 02/14/18 04:00 02/14/18 08:00 Temperature 98.1 F 98.2 F 97.9 F Pulse Rate 70 63 74 Respiratory Rate 20 20 17 Blood Pressure 145/70 H 133/77 126/75 Pulse Oximetry 95 93 L 96 Intake & Output 02/13/18 02/14/18 02/14/18 18:59 06:59 18:59 Intake Total 782.5 / 782.5 1250 / 1250 Output Total 1400 / 1400 1200 / 1200 Balance -617.5 / -617.5 50 / 50 Weight 91.4 kg Intake: IV 362.5 / 362.5 410 / 410 Maxipime Inj 1,000 MG In NS Inj 100 / 100 110 / 110 100 ML @ 200 mls/hr IV.SIG Q12H [facility] Rx#:[id number] Vancomycin Inj 1,250 MG In NS 262.5 / 262.5 300 / 300 Inj 250 ML @ 250 mls/hr IV.SIG Q12H [facility] Rx#:[id number] Oral 420 / 420 840 / 840 Output: Urine 1400 / 1400 1200 / 1200 Other: Date of Last Bowel Movement 02/13/18 # Bowel Movements 1 Narrative: GENERAL: NAD SKIN: Focused skin assessment warm and dry. HEENT: PERRLA, EOMI. No scleral icterus or conjunctival pallor. No lid lag or facial droop. CARDIOVASCULAR: Regular rate and rhythm. No obvious murmurs to auscultation. No chest tenderness to palpation. RESPIRATORY: No obvious rhonchi or wheezing. Clear to auscultation. Breath sounds equal bilaterally. GASTROINTESTINAL: Abdomen soft, non-tender, nondistended. BS normal. MUSCULOSKELETAL: Extremities without clubbing, cyanosis, or edema. No obvious deformities. Left foot with dressing in place, has a wound VAC. Intact sensation to toes. Skin warm and dry, capillary refill less than 3 seconds. NEUROLOGICAL: Awake, alert and oriented x4. No focal neurologic deficits. Moving both upper and lower extremities spontaneously. PSYCHIATRIC: Appropriate mood and affect. Insight and judgment normal. Results - Labs CBC & Chem 7: 02/13/18 05:05 02/13/18 05:05 Microbiology 02/11/18 09:54 Tissue - Foot Gram Stain - Final 02/11/18 09:54 Tissue - Foot Wound Culture - Preliminary gram negative rods 02/09/18 22:10 Blood - Peripheral Aerobic Blood Culture - Preliminary No growth in 4 days 02/09/18 22:10 Blood - Peripheral Anaerobic Blood Culture - Preliminary No growth in 4 days 02/09/18 22:15 Blood - Peripheral Aerobic Blood Culture - Preliminary No growth in 4 days 02/09/18 22:15 Blood - Peripheral Anaerobic Blood Culture - Preliminary No growth in 4 days - Procedures S/P left posterior Achilles/ankle debridement and irrigation with wound VAC Dr Palafox Assessment and Plan - Assessment (1) Post op infection Code(s): T81.40XA - Infection following a procedure, unspecified, initial encounter Status: Acute (2) Tobacco abuse Code(s): Z72.0 - Tobacco use Status: Acute - Plan 62-year-old man with Post Op Wound Infection: Left Foot, s/p left Achilles tendon rupture/ laceration w/ I&D and antibiotic bead placement on 01/17/18 -S/P left posterior Achilles/ankle debridement and irrigation with wound VAC . Wound VAC change per protocol Monday appreciate podiatry input -Continue with antibiotics, vancomycin and cefepime. -Pain management -awaiting for Input from infectious disease specialist -Patient has been clear by podiatry for discharge Tobacco Abuse -Pt counselled -NicoDerm prn if needed. DVT Prophylaxis: SCD/Teds
--- NOTE | 2018-02-14 09:54 | P.CONID ---
History of Present Illness Service: Infectious disease Consult date: 02/14/18 Requesting Physician: Casper Michelle Reason for Consult: Evaluate patient with infected left ankle wound Primary Care Provider: UNKNOWN Chief Complaint: Left foot posterior wound status post Achilles tendon repair 2/ 2 trauma History of Present Illness: Patient seen and examined. Records reviewed. Patient is a 62-year-old male, initially admitted to the hospital January 17 after he had a lawnmower injury to his left ankle. He had injury to his Achilles tendon and also had some evidence of calcaneal fracture. He underwent surgery, and he was discharged on January 24. He was apparently given Levaquin and Flagyl. He was being seen in the gallery assistant office and they have been doing the dressing changes. Patient was continued on Levaquin, and when he was seen on February 09, there was some eschar and the podiatry is wanted to do debridements of the patient was admitted to the hospital for further evaluation and treatment. He denies any fever chills or sweats. Patient has not been putting any weight on his left lower extremity. Patient underwent surgery again on February 11, and he currently has a wound VAC in place. Culture from surgery is currently pending. He is afebrile. He is on cefepime and Flagyl. His WBC is normal. Infectious disease consultation has been requested to assist with evaluation and treatment. Review of Systems Constitutional: Denies chills, Denies fever(s), Denies headache(s), Denies night sweats Eyes: Denies discharge, Denies dry eyes Ears, Nose, Mouth, and Throat: Denies difficulty swallowing, Denies mouth pain, Denies nasal discharge, Denies sore throat Cardiovascular: Denies chest pain, Denies shortness of breath Respiratory: Denies chest congestion, Denies cough, Denies shortness of breath Gastrointestinal: Denies abdominal pain, Denies constipation, Denies loose stools, Denies nausea, Denies pain with swallowing, Denies vomiting Genitourinary: Denies difficulty urinating, Denies painful urination Musculoskeletal: Denies joint swelling Skin/Breast: Reports wounds, Denies rash Neurologic: Denies headache(s) PMFSH - History History Provided By: Patient - Medical History Medical History: Medical History (Last Updated 02/14/18 @ 09:49 by Edith Brody MD) Fracture of calcaneus - Surgical History Surgical History: Surgical History (Last Updated 02/14/18 @ 09:50 by Edith Brody MD) History of ankle surgery - Family History Family History: Family History (Last Reviewed 02/14/18 @ 09:50 by Edith Brody MD) Other No pertinent family history - Tobacco History Second Hand Smoke Exposure: Yes Tobacco Use In Past 30 Days: Yes Smoking Status: Current some day smoker Tobacco Type: Cigarettes - Alcohol History How Often Do You Have a Drink Containing Alcohol: 2 to 4 times a month - Substance Use History Substance History: No History of Abuse - Travel History Recent Travel in the [place] Within the Last 8 Weeks: No Recent Travel Out of the Country Within the Last 8 Weeks: No - Immunization History Tetanus Immunization: <5 Years Hx Influenza Vaccine This Season: Yes Medications and Allergies Active Medications: Active Medications Acetaminophen (Tylenol) 650 mg PO Q4H PRN PRN Reason: Temp > 100.4 Hydrocodone Bitart/Acetaminophen ([place] 10/325) 1 tab PO Q4H PRN PRN Reason: PAIN 6-10 Hydrocodone Bitart/Acetaminophen ([place] 5/325) 1 tab PO Q4H PRN PRN Reason: PAIN 3-5 Last Admin: 02/11/18 11:11 Dose: 1 tab Al Hydroxide/Mg Hydroxide (Milk Of Magnesia Liq) 30 ml PO Q12H PRN PRN Reason: Mild Constipation Bisacodyl (Dulcolax Supp) 10 mg RECTAL DAILY PRN PRN Reason: SEVERE CONSITIPATION Cefepime HCl 1,000 mg/ Sodium (Chloride) 100 mls @ 200 mls/hr IV.SIG Q12H [facility] Last Infusion: 02/14/18 01:05 Dose: Infused Vancomycin HCl 1,250 mg/ (Sodium Chloride) 262.5 mls @ 250 mls/hr IV.SIG Q12H [facility] Last Infusion: 02/14/18 02:49 Dose: Infused Sodium Chloride (Ns Inj) 500 mls @ 30 mls/hr IV.SIG .Q10H [facility] Last Admin: 02/11/18 07:58 Dose: Not Given Lactulose (Lactulose Liq) 30 ml PO DAILY PRN PRN Reason: SEVERE CONSITIPATION Miscellaneous Information [place] Ordered Lab Info) 0 each OTHER ONCE ONE Stop: 02/18/18 12:46 Ondansetron HCl (Zofran Inj) 4 mg IV.PUSH Q6H PRN PRN Reason: NAUSEA OR VOMITING Pharmacy Profile Note (Vancomycin Consult Pharmacy) 1 each OTHER UNSCH PRN PRN Reason: Pharmacy to dose Senna/Docusate Sodium (Elsie-Colace) 1 tab PO BID [facility] Last Admin: 02/14/18 08:48 Dose: Not Given Sennosides (Senokot) 17.2 mg PO Q12H PRN PRN Reason: Moderate Constipation Sodium Chloride (Ns Flush) 2 ml IV.FLUSH BID [facility] Last Admin: 02/14/18 08:49 Dose: 2 ml Sodium Chloride (Ns Flush) 2 ml IV.FLUSH PRN PRN PRN Reason: FLUSH AFTER USING IV ACCESS Last Admin: 02/14/18 01:07 Dose: 2 ml Allergies Allergy/AdvReac Type Severity Reaction Status Date / Time No Known Allergies Allergy Verified 02/09/18 20:26 Home Medications Medication Instructions Recorded Confirmed Type aspirin 325 mg PO DAILY 02/09/18 02/09/18 History Exam Vital signs: Vital Signs 02/13/18 12:00 02/13/18 16:00 02/13/18 20:00 Temperature 98.2 F 98.2 F 98.4 F Pulse Rate 79 79 73 Respiratory Rate 16 16 20 Blood Pressure 112/62 131/63 127/67 Pulse Oximetry 97 96 94 L 02/14/18 00:00 02/14/18 04:00 02/14/18 08:00 Temperature 98.1 F 98.2 F 97.9 F Pulse Rate 70 63 74 Respiratory Rate 20 20 17 Blood Pressure 145/70 H 133/77 126/75 Pulse Oximetry 95 93 L 96 Intake & Output 02/13/18 02/14/18 02/14/18 18:59 06:59 18:59 Intake Total 782.5 / 782.5 1250 / 1250 Output Total 1400 / 1400 1200 / 1200 Balance -617.5 / -617.5 50 / 50 Weight 91.4 kg Intake: IV 362.5 / 362.5 410 / 410 Maxipime Inj 1,000 MG In NS Inj 100 / 100 110 / 110 100 ML @ 200 mls/hr IV.SIG Q12H [facility] Rx#:[id number] Vancomycin Inj 1,250 MG In NS 262.5 / 262.5 300 / 300 Inj 250 ML @ 250 mls/hr IV.SIG Q12H [facility] Rx#:[id number] Oral 420 / 420 840 / 840 Output: Urine 1400 / 1400 1200 / 1200 Other: Date of Last Bowel Movement 02/13/18 # Bowel Movements 1 Narrative: Physical examination GENERAL: Patient is a well-nourished, well-developed male, awake and alert, not in respiratory distress. SKIN: Cool and dry. No generalized rash, no ecchymoses and no evidence of embolic lesions. HEAD: Atraumatic. Normocephalic. No temporal wasting, or tenderness. EYES: [place] conjunctiva. No petechia or hemorrhage. Pupils equal, round and reactive to light. Extraocular movements full and intact. No scleral icterus. No injection or drainage. EARS, NOSE AND THROAT: Nose without bleeding or purulent nasal discharge. No sinus tenderness. Mucous membranes pink and moist. No oral lesions noted. No exudate. No oral thrush. NECK: Trachea midline. Supple and not tender, no meningeal signs CARDIOVASCULAR: Regular rate and rhythm. No murmurs, rubs or gallops heard RESPIRATORY: Clear to auscultation. Breath sounds equal bilaterally. No rales , wheezing or rhonchi ABDOMEN: Soft, non-tender, nondistended. Bowel sounds present and normoactive. No guarding. No rebound. No organomegaly. EXTREMITIES: No clubbing, cyanosis. has mild edema on his foot. has open wound in posterior ankle with red tissue and small amount of yellow fibrous tissue, no periwound erythema. No joint effusion, has good ROM. No calf tenderness. Well perfused and warm. NEUROLOGICAL: Awake and alert. Cranial nerves grossly intact. Motor grossly within normal limits. PSYCHIATRIC: Normal affect, calm and cooperative. LINE: No evidence of infection Results - Labs CBC & Chem 7: 02/13/18 05:05 02/13/18 05:05 Assessment and Plan - Plan Impression Infected wound L ankle, S/P debridement - previous OR L ankle, post Achilles tendon injury, and has calcaneal fracture from urologist injury - intraop C/S GNR, pending Recommendation Continue cefepime Continue Vancomycin Follow C/S and adjust Abx Will D/W podiatry - possibly oral Abx in D/C? Monitor progress Explained plan to patient and I will follow along with you Thank you for this consultation
[2018-02-15] MEDS: Vancomycin Inj 1,250 MG in Sodium Chlor 0.9% Inj 250 ML IV.SIG SCH ×2 (00:57→13:48)
--- NOTE | 2018-02-15 09:39 | P.PN ---
Subjective Interval history: Follow-up Post Op Wound Infection: Left Foot, s/p left Achilles tendon rupture/ laceration February 13, 2018-patient seen and examined, no complaint of left foot pain. Afebrile. February 14, 2018-patient seen and examined .stable. No complaints. by the bedside February 15, 2018-patient seen and examined, resting. Afebrile. No acute event overnight Physical Exam Vital signs: Vital Signs 02/14/18 12:00 02/14/18 16:00 02/14/18 20:00 Temperature 98.1 F 98.4 F 98.7 F Pulse Rate 84 77 80 Respiratory Rate 17 16 18 Blood Pressure 137/84 135/81 128/69 Pulse Oximetry 94 L 94 L 94 L 02/15/18 00:00 02/15/18 04:00 02/15/18 08:00 Temperature 98.2 F 98.1 F 98.5 F Pulse Rate 76 77 73 Respiratory Rate 16 16 17 Blood Pressure 138/80 134/74 138/81 Pulse Oximetry 94 L 95 96 Intake & Output 02/14/18 02/15/18 02/15/18 18:59 06:59 18:59 Intake Total 1562.5 / 1562.5 362.5 / 362.5 Output Total 600 / 600 600 / 600 Balance 962.5 / 962.5 -237.5 / -237.5 Weight 96.4 kg Intake: IV 372.5 / 372.5 362.5 / 362.5 Maxipime Inj 1,000 MG In NS Inj 110 / 110 100 / 100 100 ML @ 200 mls/hr IV.SIG Q12H [facility] Rx#:[id number] Vancomycin Inj 1,250 MG In NS 262.5 / 262.5 262.5 / 262.5 Inj 250 ML @ 250 mls/hr IV.SIG Q12H [facility] Rx#:[id number] Oral 840 / 840 Other 350 / 350 Output: Urine 600 / 600 600 / 600 Other: # Voids 4 Date of Last Bowel Movement 02/14/18 # Bowel Movements 1 Narrative: GENERAL: NAD SKIN: Cool and dry. No generalized rash, no ecchymoses and no evidence of embolic lesions. HEAD: Atraumatic. Normocephalic. No temporal wasting, or tenderness. EYES: [place] conjunctiva. No petechia or hemorrhage. Pupils equal, round and reactive to light. Extraocular movements full and intact. No scleral icterus. No injection or drainage. EARS, NOSE AND THROAT: Nose without bleeding or purulent nasal discharge. No sinus tenderness. Mucous membranes pink and moist. No oral lesions noted. No exudate. No oral thrush. NECK: Trachea midline. Supple and not tender, no meningeal signs CARDIOVASCULAR: Regular rate and rhythm. No murmurs, rubs or gallops heard RESPIRATORY: Clear to auscultation. Breath sounds equal bilaterally. No rales , wheezing or rhonchi ABDOMEN: Soft, non-tender, nondistended. Bowel sounds present and normoactive. No guarding. No rebound. No organomegaly. EXTREMITIES: No clubbing, cyanosis. has mild edema on his foot. has open wound in posterior ankle with red tissue and small amount of yellow fibrous tissue, no periwound erythema. No joint effusion, has good ROM. No calf tenderness. Well perfused and warm. NEUROLOGICAL: Awake and alert. Cranial nerves grossly intact. Motor grossly within normal limits. PSYCHIATRIC: Normal affect, calm and cooperative. LINE: No evidence of infection Results - Labs CBC & Chem 7: 02/13/18 05:05 02/15/18 05:09 Laboratory Results - last 24 hr 02/15/18 05:09 Creatinine 0.98 Estimated GFR 78 L Microbiology 02/11/18 09:54 Tissue - Foot Gram Stain - Final 02/11/18 09:54 Tissue - Foot Wound Culture - Final Stenotrophomonas maltophilia 02/11/18 09:54 Tissue - Foot Acid Fast Bacilli Smear - Final No acid fast bacilli seen 02/09/18 22:10 Blood - Peripheral Aerobic Blood Culture - Final No growth in 5 days 02/09/18 22:10 Blood - Peripheral Anaerobic Blood Culture - Final No growth in 5 days 02/09/18 22:15 Blood - Peripheral Aerobic Blood Culture - Final No growth in 5 days 02/09/18 22:15 Blood - Peripheral Anaerobic Blood Culture - Final No growth in 5 days - Procedures S/P left posterior Achilles/ankle debridement and irrigation with wound VAC Dr Palafox Assessment and Plan - Assessment (1) Post op infection Code(s): T81.40XA - Infection following a procedure, unspecified, initial encounter Status: Acute (2) Tobacco abuse Code(s): Z72.0 - Tobacco use Status: Acute - Plan 62-year-old man with Post Op Wound Infection: Left Foot, s/p left Achilles tendon rupture/ laceration w/ I&D and antibiotic bead placement on 01/17/18 -S/P left posterior Achilles/ankle debridement and irrigation with wound VAC . Wound VAC change per protocol Monday appreciate podiatry input -Continue with antibiotics, vancomycin and cefepime per ID anterior case discussed with podiatry to decide on what antibiotics to discharge the patient home with -intraoperative C/S GNR, pending -Pain management accordingly -Patient has been clear by podiatry for discharge Tobacco Abuse -Pt counselled -Amy prn if needed. DVT Prophylaxis: SCD/Teds
[2018-02-15] MEDS: Sodium Chloride 0.9% 2 ML Flush BID IV.FLUSH SCH ×2 (09:45→20:39)
[2018-02-15] MEDS: Senna/Docusate Sodium 8.6/50 MG Tablet PO SCH ×2 (09:45→20:39)
--- NOTE | 2018-02-15 14:11 | P.PNID ---
Subjective Remarks: Patient is a 62-year-old male, initially admitted to the hospital January 17 after he had a lawnmower injury to his left ankle. He had injury to his Achilles tendon and also had some evidence of calcaneal fracture. He underwent surgery, and he was discharged on January 24. He was apparently given Levaquin and Flagyl. 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 Patient was continued on Levaquin, and when he was seen on February 09, there was some eschar and the podiatry is wanted to do debridements of the patient was admitted to the hospital for further evaluation and treatment. He denies any fever chills or sweats. Patient has not been putting any weight on his left lower extremity. Patient underwent surgery again on February 11, and he currently has a wound VAC in place. Culture from surgery is currently pending. He is afebrile. He is on cefepime and Flagyl. His WBC is normal. Infectious disease consultation has been requested to assist with evaluation and treatment. Notes reviewed Anxious about when he will get his wound vac Wound C/S with Sten mal Antibiotics: Vancomycin Cefepime Lines: PIV Past Medical History: Fracture calcaneus Ankle surgery Allergies/Adverse Reactions: Allergies No Known Allergies Allergy (Verified 02/09/18 20:26) Objective Vital Signs 02/14/18 16:00 02/14/18 20:00 02/15/18 00:00 Temperature 98.4 F 98.7 F 98.2 F Pulse Rate 77 80 76 Respiratory Rate 16 18 16 Blood Pressure 135/81 128/69 138/80 Pulse Oximetry 94 L 94 L 94 L 02/15/18 04:00 02/15/18 08:00 02/15/18 12:00 Temperature 98.1 F 98.5 F 97.9 F Pulse Rate 77 73 78 Respiratory Rate 16 17 18 Blood Pressure 134/74 138/81 117/66 Pulse Oximetry 95 96 94 L Intake & Output 02/14/18 02/15/18 02/15/18 18:59 06:59 18:59 Intake Total 1562.5 / 1562.5 362.5 / 362.5 Output Total 600 / 600 600 / 600 Balance 962.5 / 962.5 -237.5 / -237.5 Weight 96.4 kg Intake: IV 372.5 / 372.5 362.5 / 362.5 Maxipime Inj 1,000 MG In NS Inj 110 / 110 100 / 100 100 ML @ 200 mls/hr IV.SIG Q12H [facility] Rx#:[id number] Vancomycin Inj 1,250 MG In NS 262.5 / 262.5 262.5 / 262.5 Inj 250 ML @ 250 mls/hr IV.SIG Q12H [facility] Rx#:[id number] Oral 840 / 840 Other 350 / 350 Output: Urine 600 / 600 600 / 600 Other: # Voids 4 Date of Last Bowel Movement 02/14/18 02/14/18 # Bowel Movements 1 02/11/18 09:54 Tissue - Foot Gram Stain - Final 02/11/18 09:54 Tissue - Foot Wound Culture - Final Stenotrophomonas maltophilia 02/11/18 09:54 Tissue - Foot Acid Fast Bacilli Smear - Final No acid fast bacilli seen 02/11/18 09:54 Tissue - Foot Mycobacterial Culture - Pending 02/09/18 22:10 Blood - Peripheral Aerobic Blood Culture - Final No growth in 5 days 02/09/18 22:10 Blood - Peripheral Anaerobic Blood Culture - Final No growth in 5 days 02/09/18 22:15 Blood - Peripheral Aerobic Blood Culture - Final No growth in 5 days 02/09/18 22:15 Blood - Peripheral Anaerobic Blood Culture - Final No growth in 5 days 02/11/18 09:54 Tissue - Foot Fungal Smear - Final No fungal elements seen 02/11/18 09:54 Tissue - Foot Fungal Culture - Pending Lab - Chemistry Results 02/15/18 05:09 Creatinine 0.98 Estimated GFR 78 L Physical Exam: GENERAL: awake and alert, not in respiratory distress. SKIN: Cool and dry. No generalized rash HEAD: Atraumatic. Normocephalic. No temporal wasting, or tenderness. EYES: [place] conjunctiva. No petechia or hemorrhage. No scleral icterus. No injection or drainage. EARS, NOSE AND THROAT: Nose without bleeding or purulent nasal discharge. Mucous membranes pink and moist. No oral lesions noted. NECK: Trachea midline. Supple and not tender, no meningeal signs CARDIOVASCULAR: Regular rate and rhythm. No murmurs, rubs or gallops heard RESPIRATORY: Clear to auscultation. Breath sounds equal bilaterally. No rales , wheezing or rhonchi ABDOMEN: Soft, non-tender, nondistended. Bowel sounds present and normoactive. No guarding. No rebound. No organomegaly. EXTREMITIES: No clubbing, cyanosis. has mild edema on his foot. Intact dressing L foot. No calf tenderness. NEUROLOGICAL: Non-focal. PSYCHIATRIC: Normal affect, calm and cooperative. LINE: No evidence of infection Assessment and Plan - Plan Impression Infected wound L ankle, S/P debridement - previous OR L ankle, post Achilles tendon injury, and has calcaneal fracture from bight maker injury - intraop C/S Sten mal Recommendation Chnage Abx to Bactrim at least 14 days, may need longer and will have podiatry decide if needed to be extended when he gets his followup Can give him 14 days Rx and giev him 1 refill Awaiting wound vac and then he will be D/C Explained plan to patient and D/W SMOOTH D/W CM
--- NOTE | 2018-02-15 14:19 | P.DCO ---
- Diagnosis (1) Post op infection Status: Acute - Home Health Nursing Order: Wound care and dressing changes (wound vac change protocol [id number]) - Case Management Consult No - Certification I have seen patient Héctor Durán on 02/15/18. My clinical findings support the need for the requested home health care services because: Infection with risk of complications I certify that my clinical findings support that this patient is homebound because: Poor cardiac reserve
[2018-02-16] MEDS: Sodium Chloride 0.9% 2 ML Flush BID IV.FLUSH SCH ×2 (08:27→21:25)
[2018-02-16] MEDS: Senna/Docusate Sodium 8.6/50 MG Tablet PO SCH ×2 (08:27→21:25)
--- NOTE | 2018-02-16 10:27 | P.PN ---
Subjective Interval history: Follow-up Post Op Wound Infection: Left Foot, s/p left Achilles tendon rupture/ laceration February 16, 2018-patient seen and examined, denies any pain and currently afebrile. Currently on p.o. Bactrim. Wants to go home. Physical Exam Vital signs: Vital Signs 02/15/18 12:00 02/15/18 16:00 02/15/18 20:00 Temperature 97.9 F 98.2 F 98.3 F Pulse Rate 78 76 78 Respiratory Rate 18 17 20 Blood Pressure 117/66 139/71 125/72 Pulse Oximetry 94 L 93 L 95 02/16/18 00:00 02/16/18 04:00 02/16/18 07:26 Temperature 98.3 F 98.0 F 97.4 F L Pulse Rate 80 77 74 Respiratory Rate 20 20 18 Blood Pressure 112/62 119/67 121/74 Pulse Oximetry 94 L 96 96 Intake & Output 02/15/18 02/16/18 02/16/18 18:59 06:59 18:59 Intake Total 720 / 720 380 / 380 Balance 720 / 720 380 / 380 Intake: Oral 720 / 720 380 / 380 Other: # Voids 3 2 Date of Last Bowel Movement 02/15/18 # Bowel Movements 1 1 Narrative: GENERAL: NAD SKIN: Cool and dry. No generalized rash, no ecchymoses and no evidence of embolic lesions. HEAD: Atraumatic. Normocephalic. No temporal wasting, or tenderness. EYES: [place] conjunctiva. No petechia or hemorrhage. Pupils equal, round and reactive to light. Extraocular movements full and intact. No scleral icterus. No injection or drainage. EARS, NOSE AND THROAT: Nose without bleeding or purulent nasal discharge. No sinus tenderness. Mucous membranes pink and moist. No oral lesions noted. No exudate. No oral thrush. NECK: Trachea midline. Supple and not tender, no meningeal signs CARDIOVASCULAR: Regular rate and rhythm. No murmurs, rubs or gallops heard RESPIRATORY: Clear to auscultation. Breath sounds equal bilaterally. No rales , wheezing or rhonchi ABDOMEN: Soft, non-tender, nondistended. Bowel sounds present and normoactive. No guarding. No rebound. No organomegaly. EXTREMITIES: No clubbing, cyanosis. has mild edema on his foot. has open wound in posterior ankle with red tissue and small amount of yellow fibrous tissue, no periwound erythema. No joint effusion, has good ROM. No calf tenderness. Well perfused and warm. NEUROLOGICAL: Awake and alert. Cranial nerves grossly intact. Motor grossly within normal limits. PSYCHIATRIC: Normal affect, calm and cooperative. LINE: No evidence of infection Results - Labs CBC & Chem 7: 02/13/18 05:05 02/15/18 05:09 Microbiology 02/11/18 09:54 Tissue - Foot Gram Stain - Final 02/11/18 09:54 Tissue - Foot Wound Culture - Final Stenotrophomonas maltophilia - Procedures S/P left posterior Achilles/ankle debridement and irrigation with wound VAC Dr Palafox Assessment and Plan - Assessment (1) Post op infection Code(s): T81.40XA - Infection following a procedure, unspecified, initial encounter Status: Acute (2) Tobacco abuse Code(s): Z72.0 - Tobacco use Status: Acute - Plan 62-year-old man with Post Op Wound Infection: Left Foot, s/p left Achilles tendon rupture/ laceration w/ I&D and antibiotic bead placement on 01/17/18 -S/P left posterior Achilles/ankle debridement and irrigation with wound VAC . Wound VAC change per protocol Monday appreciate podiatry input -s/p vancomycin and cefepime; now on p.o. Bactrim DS 1 tablet twice daily times 14 days with 1 refill per ID -Pain management accordingly -Patient has been clear by podiatry for discharge Tobacco Abuse -Pt counselled -NicoDerm prn if needed. DVT Prophylaxis: SCD/Teds
--- NOTE | 2018-02-16 10:30 | P.DS ---
Date of admission: 02/11/18 14:36 Primary care physician: UNKNOWN Brief History from admission: This is a 62-year-old male with a PMH of Left Foot Injury and Tobacco Abuse who was sent to the ER for admission by Dr. Palafox. Previous admit 01/17-01/22/18 for left ankle injury w/ pearl maker, s/p Achilles tendon rupture/laceration s/p I&D w/ Abx bead placement and wound VAC on 01/17/[address] Stockton, d/c'raina on Levaquin/Flagyl. Was seen in office approx 10 days ago and had sutures removed , seen again today and noted to have non-healing wound w/ infection, sent to ER by Dr. Palafox for IV Abx and admission for surgical intervention. Pt denies fever/chills. No significant pain complaints. On arrival, BP 125/64, HR 83, O2 sat 96% on RA, Afebrile. DS: Diagnosis - Discharge Diagnosis (1) Post op infection Status: Acute (2) Tobacco abuse Status: Acute DS: Summary Hospital Course: while in the hospital, patient was treated for: Post Op Wound Infection: Left Foot, s/p left Achilles tendon rupture/ laceration w/ I&D and antibiotic bead placement on 01/17/18 -S/P left posterior Achilles/ankle debridement and irrigation with wound VAC . Wound VAC change per protocol Monday appreciate podiatry input -s/p vancomycin and cefepime; now on p.o. Bactrim DS 1 tablet twice daily times 14 days with 1 refill per ID -Pain management accordingly -Patient has been clear by podiatry for discharge Tobacco Abuse -Pt counselled -NicoDerm prn if needed. DVT Prophylaxis: SCD/Teds - Time Spent with Patient Total time spent providing and/or coordinating discharge services: Greater than 30 minutes - Quality: VTE Deep Vein Thrombosis/Pulmonary Embolism Present on Admission: No Exam Vital signs: Vital Signs 02/15/18 12:00 02/15/18 16:00 02/15/18 20:00 Temperature 97.9 F 98.2 F 98.3 F Pulse Rate 78 76 78 Respiratory Rate 18 17 20 Blood Pressure 117/66 139/71 125/72 Pulse Oximetry 94 L 93 L 95 02/16/18 00:00 02/16/18 04:00 02/16/18 07:26 Temperature 98.3 F 98.0 F 97.4 F L Pulse Rate 80 77 74 Respiratory Rate 20 20 18 Blood Pressure 112/62 119/67 121/74 Pulse Oximetry 94 L 96 96 Intake & Output 02/15/18 02/16/18 02/16/18 18:59 06:59 18:59 Intake Total 720 / 720 380 / 380 Balance 720 / 720 380 / 380 Intake: Oral 720 / 720 380 / 380 Other: # Voids 3 2 Date of Last Bowel Movement 02/15/18 # Bowel Movements 1 1 Narrative: GENERAL: NAD SKIN: Cool and dry. No generalized rash, no ecchymoses and no evidence of embolic lesions. HEAD: Atraumatic. Normocephalic. No temporal wasting, or tenderness. EYES: [place] conjunctiva. No petechia or hemorrhage. Pupils equal, round and reactive to light. Extraocular movements full and intact. No scleral icterus. No injection or drainage. EARS, NOSE AND THROAT: Nose without bleeding or purulent nasal discharge. No sinus tenderness. Mucous membranes pink and moist. No oral lesions noted. No exudate. No oral thrush. NECK: Trachea midline. Supple and not tender, no meningeal signs CARDIOVASCULAR: Regular rate and rhythm. No murmurs, rubs or gallops heard RESPIRATORY: Clear to auscultation. Breath sounds equal bilaterally. No rales , wheezing or rhonchi ABDOMEN: Soft, non-tender, nondistended. Bowel sounds present and normoactive. No guarding. No rebound. No organomegaly. EXTREMITIES: No clubbing, cyanosis. has mild edema on his foot. has open wound in posterior ankle with red tissue and small amount of yellow fibrous tissue, no periwound erythema. No joint effusion, has good ROM. No calf tenderness. Well perfused and warm. NEUROLOGICAL: Awake and alert. Cranial nerves grossly intact. Motor grossly within normal limits. PSYCHIATRIC: Normal affect, calm and cooperative. LINE: No evidence of infection Results Procedures completed during hospitalization: S/P left posterior Achilles/ankle debridement and irrigation with wound VAC Dr Palafox Discharge Plan - Discharge Disposition Patient Disposition: W/Home Health Service - Discharge Condition Condition: Good - Discharge Order Discharge Orders: Discharge Order (Routine); Ordered 02/16/18 Ordered By: Csaper Michelle Cardiology Clear for Discharge (Routine); Ordered 02/18/18 Ordered By: Casper Michelle - Physicians Team Primary Care Provider: UNKNOWN, Attending Provider: Casper Michelle Other Providers: Elle Palafox DPM ; Edith Brody MD
[2018-02-17] MEDS: Senna/Docusate Sodium 8.6/50 MG Tablet PO SCH ×2 (09:10→20:34)
[2018-02-17] MEDS: Sodium Chloride 0.9% 2 ML Flush BID IV.FLUSH SCH ×2 (09:10→20:32)
--- NOTE | 2018-02-17 12:40 | P.PN ---
Subjective Interval history: Follow-up Post Op Wound Infection: Left Foot, s/p left Achilles tendon rupture/ laceration February 16, 2018-patient seen and examined, denies any pain and currently afebrile. Currently on p.o. Bactrim. Wants to go home. February 17, 2018-patient seen and examined, patient remains stable pending discharge disposition Physical Exam Vital signs: Vital Signs 02/16/18 16:00 02/16/18 20:00 02/17/18 00:00 Temperature 98.4 F 98.6 F 98.8 F Pulse Rate 79 83 79 Respiratory Rate 18 20 20 Blood Pressure 111/62 115/67 121/79 Pulse Oximetry 95 96 97 02/17/18 04:00 02/17/18 08:00 Temperature 98.6 F 98.6 F Pulse Rate 79 76 Respiratory Rate 20 20 Blood Pressure 108/72 110/68 Pulse Oximetry 95 97 Intake & Output 02/16/18 02/17/18 02/17/18 18:59 06:59 18:59 Intake Total 720 / 720 1420 / 1420 Balance 720 / 720 1420 / 1420 Weight 100.5 kg Intake: Oral 720 / 720 1420 / 1420 Other: # Voids 3 3 Date of Last Bowel Movement 02/16/18 02/16/18 # Bowel Movements 3 Narrative: GENERAL: NAD SKIN: Cool and dry. No generalized rash, no ecchymoses and no evidence of embolic lesions. HEAD: Atraumatic. Normocephalic. No temporal wasting, or tenderness. EYES: [place] conjunctiva. No petechia or hemorrhage. Pupils equal, round and reactive to light. Extraocular movements full and intact. No scleral icterus. No injection or drainage. EARS, NOSE AND THROAT: Nose without bleeding or purulent nasal discharge. No sinus tenderness. Mucous membranes pink and moist. No oral lesions noted. No exudate. No oral thrush. NECK: Trachea midline. Supple and not tender, no meningeal signs CARDIOVASCULAR: Regular rate and rhythm. No murmurs, rubs or gallops heard RESPIRATORY: Clear to auscultation. Breath sounds equal bilaterally. No rales , wheezing or rhonchi ABDOMEN: Soft, non-tender, nondistended. Bowel sounds present and normoactive. No guarding. No rebound. No organomegaly. EXTREMITIES: No clubbing, cyanosis. has mild edema on his foot. has open wound in posterior ankle with red tissue and small amount of yellow fibrous tissue, no periwound erythema. No joint effusion, has good ROM. No calf tenderness. Well perfused and warm. NEUROLOGICAL: Awake and alert. Cranial nerves grossly intact. Motor grossly within normal limits. PSYCHIATRIC: Normal affect, calm and cooperative. LINE: No evidence of infection Results - Labs CBC & Chem 7: 02/13/18 05:05 02/15/18 05:09 - Procedures S/P left posterior Achilles/ankle debridement and irrigation with wound VAC Dr Palafox Assessment and Plan - Assessment (1) Post op infection Code(s): T81.40XA - Infection following a procedure, unspecified, initial encounter Status: Acute (2) Tobacco abuse Code(s): Z72.0 - Tobacco use Status: Acute - Plan 62-year-old man with Post Op Wound Infection: Left Foot, s/p left Achilles tendon rupture/ laceration w/ I&D and antibiotic bead placement on 01/17/18 -S/P left posterior Achilles/ankle debridement and irrigation with wound VAC . Wound VAC change per protocol Monday appreciate podiatry input -s/p vancomycin and cefepime; now on p.o. Bactrim DS 1 tablet twice daily times 14 days with 1 refill per ID -Pain management accordingly -Patient has been clear by podiatry for discharge Tobacco Abuse -Pt counselled -NicoDerm prn if needed. DVT Prophylaxis: SCD/Teds
[2018-02-18] MEDS: Senna/Docusate Sodium 8.6/50 MG Tablet PO SCH (08:54)
[2018-02-18] MEDS: Sodium Chloride 0.9% 2 ML Flush BID IV.FLUSH SCH (08:55)
--- NOTE | 2018-02-18 09:52 | P.DCO ---
- Home Health Nursing Order: Wound care and dressing changes (Nursing for wound care and dressing changes) Instructions: Nursing for wound care and dressing change Nursing for wound VAC change per protocol [id number] - Case Management Consult No - Certification I have seen patient Héctor Durán on 02/18/18. My clinical findings support the need for the requested home health care services because: Limited mobility due to disease progression, Infection with risk of complications I certify that my clinical findings support that this patient is homebound because: Post-op weakness, Poor cardiac reserve
--- NOTE | 2018-02-18 09:54 | P.PN ---
Subjective Interval history: Follow-up Post Op Wound Infection: Left Foot, s/p left Achilles tendon rupture/ laceration February 18, 2018-patient seen and examined, no acute event overnight. Now wound has been set up, patient ready for discharge. Case discussed with case managers along with patient. Physical Exam Vital signs: Vital Signs 02/17/18 12:00 02/17/18 16:00 02/17/18 20:00 Temperature 97.8 F 97.8 F 98.3 F Pulse Rate 87 88 83 Respiratory Rate 18 Blood Pressure 101/56 L 107/77 117/62 Pulse Oximetry 94 L 94 L 94 L 02/18/18 00:00 02/18/18 04:00 02/18/18 08:00 Temperature 98.0 F 98.2 F 98.0 F Pulse Rate 84 74 80 Respiratory Rate 18 16 19 Blood Pressure 114/69 120/63 115/71 Pulse Oximetry 95 95 93 L Intake & Output 02/17/18 02/18/18 02/18/18 18:59 06:59 18:59 Intake Total 480 / 480 Output Total 1400 / 1400 Balance -920 / -920 Weight 100.2 kg Intake: Oral 480 / 480 Output: Urine 1400 / 1400 Other: # Voids 1 Date of Last Bowel Movement 02/16/18 02/16/18 02/16/18 # Bowel Movements 1 Narrative: GENERAL: NAD SKIN: Cool and dry. No generalized rash, no ecchymoses and no evidence of embolic lesions. HEAD: Atraumatic. Normocephalic. No temporal wasting, or tenderness. EYES: [place] conjunctiva. No petechia or hemorrhage. Pupils equal, round and reactive to light. Extraocular movements full and intact. No scleral icterus. No injection or drainage. EARS, NOSE AND THROAT: Nose without bleeding or purulent nasal discharge. No sinus tenderness. Mucous membranes pink and moist. No oral lesions noted. No exudate. No oral thrush. NECK: Trachea midline. Supple and not tender, no meningeal signs CARDIOVASCULAR: Regular rate and rhythm. No murmurs, rubs or gallops heard RESPIRATORY: Clear to auscultation. Breath sounds equal bilaterally. No rales , wheezing or rhonchi ABDOMEN: Soft, non-tender, nondistended. Bowel sounds present and normoactive. No guarding. No rebound. No organomegaly. EXTREMITIES: No clubbing, cyanosis. has mild edema on his foot. has open wound in posterior ankle with red tissue and small amount of yellow fibrous tissue, no periwound erythema. No joint effusion, has good ROM. No calf tenderness. Well perfused and warm. NEUROLOGICAL: Awake and alert. Cranial nerves grossly intact. Motor grossly within normal limits. PSYCHIATRIC: Normal affect, calm and cooperative. LINE: No evidence of infection Results - Labs CBC & Chem 7: 02/13/18 05:05 02/15/18 05:09 - Procedures S/P left posterior Achilles/ankle debridement and irrigation with wound VAC Dr Palafox Assessment and Plan - Assessment (1) Post op infection Code(s): T81.40XA - Infection following a procedure, unspecified, initial encounter Status: Acute (2) Tobacco abuse Code(s): Z72.0 - Tobacco use Status: Acute - Plan 62-year-old man with Post Op Wound Infection: Left Foot, s/p left Achilles tendon rupture/ laceration w/ I&D and antibiotic bead placement on 01/17/18 -S/P left posterior Achilles/ankle debridement and irrigation with wound VAC . Wound VAC change per protocol Monday appreciate podiatry input -s/p vancomycin and cefepime; now on p.o. Bactrim DS 1 tablet twice daily times 14 days with 1 refill per ID -Pain management accordingly -Patient has been clear by podiatry for discharge -Wound VAC supplied delivered and patient now ready for discharge home. Tobacco Abuse -Pt counselled -NicoDerm prn if needed. DVT Prophylaxis: SCD/Teds
[2018-02-18 12:45] VITALS: BP 105/59; PULSE 83; RESP 18; TEMP 98.1; O2SAT 94
[2018-02-18] MEDS ORDERED: Pharmacy Ordered Lab Info OTHER ONE (12:45)
== END 2018-02-18 13:57 | disposition home health service (06) ==
LOC: NEDA 19:36 → NEPC 19:36 → N04 02-10 01:40
PROVIDERS: ADMIT Hospitalist; ATTEND Hospitalist